=== PATIENT | female | born 1970 | race Caucasian/White ===

== ENCOUNTER 2017-05-04 19:39 | Inpatient (IN) | payer MEDICARE ==
[~2017-05-04] VITALS: Ht 172.7 cm; Wt 130.0 kg
--- NOTE | ~2017-05-04 | HEMODYNAMI ---
PATIENT:RADHA MARIE MEDICAL RECORD: [id number] : 72 LOCATION:[address] ADMISSION DATE: 05/04/17 Generatedon:05/12/201715:21 Patient name: RADHA MARIE Patient #: [id number] SSN: D OB: 1970 Date of study: 05/12/2017 Page: Of Hemodynamic Procedure Report Patient Data Patient Demographics Procedure consent was obtained First Name: RADHA Gender: Female Last Name: FRANK : 1970 Patient #: [id number] Age: 46 year(s) Race: Unknown Additional ID: [id number] Contact details [address]: [address] [place] [address] State: [place] City: [facility] Zip code: [address] Admission Admission Data Admission Date: 05/04/2017 Admission Time: 21:14 Room #: 2123 Lab Results Lab Result Date: 05/12/2017 Lab Result Time: 0:00 Biochemistry Name Units Result Min Max BUN mg/dl 45 --(----)-* 7 18 Creatinine mg/dl 1.6 --(----)-* 0.6 1.3 CBC Name Units Result Min Max Hemoglobin g/dl 8.6 *-(----)-- 13.5 17.5 Procedure Procedure Types Cath Procedure Diagnostic Procedure Right Heart Right Heart Cath Right Heart Pharmacology Study Procedure Description Procedure Date Procedure Date: 05/12/2017 Procedure Start Time: 14:50 Procedure End Time: 15:20 Procedure Staff Name Function Wilbur Chaudhry MD Performing Physician Angel Barbosa RT Scrub Marisol Van RN Nurse Tanvir Del Rosario RT Monitor Procedure Data Cath Procedure Fluoroscopy Diagnostic fluoroscopy Total fluoroscopy Time: 2.9 time: 2.9 min min Diagnostic fluoroscopy Total fluoroscopy dose: dose: 79.5 mGy 79.5 mGy Contrast Material Contrast Material Type Amount (ml) Isovue 300 0 Entry Location Entry Primary Successful Side Size Upsize Upsize Entry Closure Gibson ccessful Closure Location (Fr) 1 (Fr) 2 (Fr) Remarks Device Remarks Femoral Right 7 Fr Manual vein Short Compression Estimated blood loss: 10 ml Diagnostic catheters Device Type Used For End Catheter Placement Nunez Spunkmobileciences 7Fr Procedure Dolph Thermodilution juventino Procedure Medications Medication Administration Route Dosage Oxygen NC 3 l/min Lidocaine 2% added to field 20 Heparin Flush Bag added to field 2 bags (1000units/500ml NS) 0.9% NaCl I.V. 100 ml/hr Versed I.V. 1 mg Fentanyl I.V. 50 mcg Versed I.V. 2 mg Fentanyl I.V. 100 mcg Fentanyl I.V. 50 mcg Versed I.V. 1 mg Hemodynamics Rest HGB: 8.6 (g/dl) Heart Rate: 85 (bpm) Pressure Samples Time Site Value (mmHg) Purpose Heart Use Rate(bpm) 14:56 PA 81/50(64) Snapshot 77 15:00 PA 87/32(51) Snapshot 80 15:02 PA 85/38(53) Snapshot 68 15:04 PA 83/34(48) Snapshot 79 15:04 PA 66/34(46) Snapshot 68 15:06 RA 47/43(38) Snapshot 96 15:07 RV 112/10,26 Snapshot 93 Snapshots Pre Cath Intra NCS Post Cath Vital Signs Time Heart Resp SPO2 NIBP (mmHg) Rhythm Pain Sedation Rate (ipm) (%) Status Level (bpm) 14:34:49 85 20 97 97/37(75) NSR 0 (11) 10(A) , No pain 14:39:13 80 27 93 108/42(54) NSR 0 (11) 10(A) , No pain 14:43:39 78 15 97 73/49(54) NSR 0 (11) 10(A) , No pain 14:49:13 73 18 98 90/38(55) NSR 0 (11) 10(A) , No pain 14:53:35 84 23 100 93/42(69) NSR 0 (11) 9(A) , No pain 14:57:53 72 12 97 107/49(63) NSR 0 (11) 9(A) , No pain 15:03:15 77 22 97 72/47(60) NSR 0 (11) 9(A) , No pain 15:08:06 93 30 92 131/109(126) NSR 0 (11) 9(A) , No pain 15:12:34 89 26 90 88/61(82) NSR 0 (11) 10(A) , No pain 15:17:33 89 24 90 Measuring NSR 0 (11) 10(A) , No pain 15:17:43 89 19 90 129/114(122) NSR 0 (11) 10(A) , No pain Medications Time Medication Route Dose Verified Delivered Reason Notes Effe ctiveness by by 14:37:02 Oxygen NC 3 Marisol Marisol used for l/min Rehan Rehan fitting room supervisor RN 14:37:12 Lidocaine 2% added 20ml Marisol Marisol used for to vial Rehan Rehan procedure field RN RN 14:37:21 Heparin Flush added 2 Marisol Marisol used for Bag to bags Rehan Rehan procedure (1000units/500ml field RN RN NS) 14:37:32 0.9% NaCl I.V. 100 Marisol Marisol used for ml/hr Rehan Rehan fitting room supervisor RN 14:49:18 Versed I.V. 1 mg Marisol Marisol for Rehan Rehan sedation RN RN 14:49:25 Fentanyl I.V. 50 Marisol Marisol for mcg Rehan Rehan sedation RN RN 14:53:38 Versed I.V. 2 mg Marisol Marisol for Rehan Rehan sedation RN RN 14:54:54 Fentanyl I.V. 100 Marisol Marisol for mcg Rehan Rehan sedation RN RN 15:00:09 Fentanyl I.V. 50 Marisol Marisol for mcg Rehan Rehan sedation RN RN 15:00:23 Versed I.V. 1 mg Marisol Marisol for Rehan Rehan sedation RN residential mortgage underwriter Log Time Note 14:24:15 Tanvir Del Rosario RT(R) (CV) sent for patient. Start room use. 14:32:36 Time tracking: Regular hours 14:32:44 Plan of Care:Hemodynamics will remain stable., Cardiac rhythm will remain stable., Comfort level will be maintained., Respiratory function will remain adequate., Patient/ family verbilizes understanding of procedure., Procedure tolerated without complication., Recovers from procedure without complications.. 14:32:50 Patient received from PCU to CCL 3 Alert and oriented. Tansferred to table in Supine position. 14:32:51 Warm blankets applied, and alex hugger turned on for patient comfort. 14:32:52 Correct patient and procedure confirmed by team. 14:32:54 Signed procedure consent form obtained from patient. 14:32:55 ECG and BP/O2 sat monitors applied to patient. 14:32:56 Full Disclosure recording started 14:32:58 - 14:33:07 H&P Date Dictated: 05/12/2017 Within 30 days and on chart.. 14:33:08 Pre-procedure instructions explained to patient. 14:33:08 Pre-op teaching completed and patient verbalized understanding. 14:33:14 Family unavailable. 14:33:18 Patient NPO since Midnight. 14:33:24 Vital chart was started 14:33:27 Baseline sample Acquired. 14:33:31 Rhythm: sinus rhythm 14:37:02 Oxygen 3 l/min NC was administered by Marisol Van RN; used for procedure; 14:37:12 Lidocaine 2% 20ml vial added to field was administered by Marisol Van RN; used for procedure; 14:37:21 Heparin Flush Bag (1000units/500ml NS) 2 bags added to field was administered by Marisol Van RN; used for procedure; 14:37:32 0.9% NaCl 100 ml/hr I.V. was administered by Marisol Van RN; used for procedure; 14:39:00 Is the patient allergic to Iodine/contrast media? No. 14:39:01 Is patient on blood thinner?No 14:39:03 Patient diabetic? No. 14:39:04 - 14:39:05 ----Pre-sedation anethsthesia assessment.---- 14:39:07 Previous problem with sedation/anesthesia? No ? 14:39:09 Snore? Yes 14:39:10 Sleep apnea? Yes 14:39:11 Deviated septum? No 14:39:13 Opens mouth fully? No 14:39:17 Sticks out tongue? Yes 14:39:22 Airway obstruction? Yes no 14:39:25 Dentures? No ? 14:39:29 Sharps counted by scrub and verified by R.N. 14:39:30 Alarms reviewed by R. N. 14:39:36 Right groin area was prepped with chlora-prep and draped in sterile fashion 14:39:42 Patient pain scale 0/10 no pain. 14:39:48 IV patent on arrival in right forearm with 0.9% NaCl at [facility]. 14:41:57 Lab Result : BUN 45 mg/dl 14:41:57 Lab Result : Hemoglobin 8.6 g/dl 14:41:57 Lab Result : Creatinine 1.6 mg/dl 14:48:32 Physician arrived 14:48:33 --------ALL STOP TIME OUT------ 14:48:33 Final Timeout: patient, procedure, and site verified with staff and physician. All members of the team are in agreement. 14:48:36 Right groin site verified by team. 14:48:41 Physical assessment completed. ASA score P 2 - A patient with mild systemic disease as per Wilbur Chaudhry MD. 14:48:48 Sedation plan: IV Moderate Sedation Versed, Fentanyl 14:49:18 Versed 1 mg I.V. was administered by Marisol Van RN; for sedation; 14:49:25 Fentanyl 50 mcg I.V. was administered by Marisol Van RN; for sedation; 14:49:43 Terumo 7Fr [place] Sheath opened to sterile field. 14:49:53 Procedure started. 14:49:59 Use device set Radial Dx 14:50:03 Acist Syringe opened to sterile field. 14:50:04 Medline Cath Pack opened to sterile field. 14:50:05 Bag Decanter opened to sterile field. 14:50:08 Acist Hand Control opened to sterile field. 14:50:08 Acist Manifold opened to sterile field. 14:50:11 Tegaderm 4 x 4 opened to sterile field. 14:50:22 Local anesthetic to right femoral vein with Lidocaine 2% by Wilbur Chaudhry MD.INITIAL ACCESS ONLY 14:50:36 Zero performed for pressure channel P1 14:51:23 Zero performed for pressure channel P1 14:51:52 A 7 Fr Short sheath was inserted into the Right Femoral vein 14:52:02 A Figure 1 7Fr Dolph Thermodilution juventino was advanced over the wire and used for Procedure. 14:53:38 St Robert 150cm J .025 wire opened to sterile field. 14:53:38 Versed 2 mg I.V. was administered by Marisol Van RN; for sedation; 14:54:54 Fentanyl 100 mcg I.V. was administered by Marisol Van RN; for sedation; 14:58:41 ADENOSINE STARTED 14:58:54 UNABLE TO WEDGE THE SWAN 15:00:09 Fentanyl 50 mcg I.V. was administered by Marisol Van RN; for sedation; 15:00:23 Versed 1 mg I.V. was administered by Marisol Van RN; for sedation; 15:03:09 STARTING 200MCG 15:08:23 Catheter removed. 15:09:23 Sheath removed intact; hemostasis achieved with Manual Compression to the Right Femoral vein. 15:09:27 Procedure ended.(Physican Out) 15:13:50 Fluoroscopy time 02.90 minutes. 15:14:03 Fluoroscopy dose: 79.5 mGy 15:14:03 Flurop Dose total: 79.5 15:14:07 Contrast amount:Isovue 300 0ml. 15:14:11 Sharps counted by scrub and verified by R.N. 15:14:18 Insertion/operative site no bleeding no hematoma. 15:14:24 Post-op/insertion site Right Femoral vein dressed using a 4 x 4 and Tegaderm. 15:14:28 Post right femoral vein:stable 15:14:39 Post-procedure physical assessment completed. ASA score P 2 - A patient with mild systemic disease as per Wilbur Chaudhry MD. 15:14:45 Post procedure rhythm: sinus rhythm 15:15:02 Estimated blood loss: 10 ml 15:15:04 Post procedure instruction explained to patient.Patient verbalizes understanding. 15:15:05 Patient needs reinforcement of post procedure teaching. 15:15:07 Procedure and supply charges have been captured, reviewed, submitted an d are correct. 15:15:37 Procedure type changed to Cath procedure, Diagnostic procedure, Right Heart, Right Heart Cath, Right Heart Pharmacology Study 15:20:01 Vital chart was stopped 15:20:02 See physician's report for complete and final results. 15:20:04 Report given to Med II. 15:20:12 Patient transfered to PCU with Bed. 15:20:15 Procedure ended. 15:20:15 Full Disclosure recording stopped 15:20:35 End room use (Document Last) Device Usage Item Name Manufacture Quantity Catalog Hospital Part Current Minima l Lot# / Number Charge Number Stock Stock Serial# Code Terumo 7Fr Terumo 1 [id number] [id number] 5 [place] Sheath Acist Syringe Acist 1 08212 457015 668793 147894 20 Medical Systems Inc Medline Cath Cardinal 1 [id number] 39200 [id number] 5 Pack Health Bag Decanter Microtek 1 2002S 139037 59185 298422 5 Medical Inc. Acist Hand Acist 1 88664 378119 288379 601875 5 Control Medical Systems Inc Acist Manifold Acist 1 81091 634563 951033 916232 5 Medical Systems Inc Tegaderm 4 x 4 3M 1 1626W 547196 680181 637623 5 Nunez Nunez 1 [id number] 452526 26990 118115 3 Lifesciences Lifesciences 7Fr Dolph Thermodilution juventino St Robert 150[address] St Robert 1 227520 071764 845674 793614 2 J .025 wire Signature Audit [place] Stage Time Signature Unsigned Intra-Procedure 05/12/2017 Tanvir Del Rosario 3:21:22 PM RT(R) (CV) Signatures Monitor : Tanvir Del Rosario RT Signature : Date : Time : [place] [id number] [place] [address]
[~2017-05-04 19:39] MED LIST: ADVAIR 250/501 DISK INH; ALDACTONE50 MG PO; BUMEX 1 MG TAB1 MG PO; BUMEX2 MG PO; COMBIVENT RESPIM4 GM INH; DUONEB 2.5-0.5 M3 ML UPD; LAC-HYDRIN 5226 ML TP; LASIX40 MG PO; LISINOPRIL10 MG PO; LYRICA50 MG PO; NICODERM C1 PATCH .3 TD; PREDNISONE20 MG PO; SALAGEN5 MG PO; SINGULAIR10 MG PO; SOMA350 MG PO; SUBOXONE 8 M1 TAB.SL SL; TAZTIA XT360 MG PO; VIAGRA25 MG PO
[2017-05-04 20:41] LABS: BASOPHILS 0.5 % (0-2); EOSINOPHILS 3.4 % (0-7); HEMATOCRIT 30.3 % (36.0-48.0); IMMATURE GRANULOCYTES 0.5 % (0-5); LYMPHOCYTES 14.5 % (15-50); MCH 28.4 pg (26.0-34.0); MCHC 29.7 g/dL (31.0-37.0); MCV 95.6 fL (80.0-100.0); MEAN PLATELET VOLUME 9.5 fL (7.4-10.4); MONOCYTES 7.1 % (2-11); PLATELET COUNT 232 10x3/uL (130-400); RBC 3.17 10x6/uL (4.00-5.40); RDW 17.2 % (11.5-14.5); WBC 8.3 10x3/uL (4.8-10.8)
[2017-05-04 21:05] LABS: ALBUMIN 3.4 g/dL (3.4-5.0); BILIRUBIN - TOTAL 0.29 mg/dL (0.2-1.3); CALCIUM 8.4 mg/dL (8.5-10.1); CARBON DIOXIDE 17.8 mmol/L (21.0-32.0); CREATININE - SERUM 4.1 mg/dL (0.6-1.3)
[2017-05-04 21:17] LABS: PROTEIN - SERUM 7.3 g/dL (6.4-8.2)
[2017-05-04 21:21] LABS: ANION GAP 24.3 mmol/L (8-16)
[2017-05-04 21:23] LABS: POTASSIUM - SERUM 7.1 mmol/L (3.5-5.1); TROPONIN-I 0.26 ng/mL (0.000-0.060)
--- NOTE | 2017-05-04 22:00 | NUR ---
PT ADMITTED TO ROOM 2122 FROM ER. ABLE TO SLOWLY TRANSFER HERSELF FROM STRETCHER TO BED. O2 @ 2L/NC IN PLACE. RESPS SLOW/NONLABORED. PIV TO RFA WITH DOBUTAMINE AT 5MCG/KG INFUSING. PIV TO LEFT WRIST SALINE LOCKED. PT WANTING LEFT HAND IV REMOVED. EXPLAINED TO HER THAT ANY ORDERED TESTING WOULD REQUIRES A 20G IV SO IF SHE HAD STAFF REMOVED IT, THEN IT WOULD ONLY HAVE TO BE RESTARTED. PT AGREED TO LEAVE IV IN PLACE. ADMISSION ASESSMENT AND HISTORY COMLETED. HOME MEDS REVIWED. PLAN OF CARE IN PLACE. CALL LIGHT IN REACH.
[2017-05-04 22:57] VITALS: BP 104/50; BMI 40.8
[2017-05-05] VITALS: BP 113/48
[2017-05-05 04:00] VITALS: BP 109/39
[2017-05-05 05:06] LABS: APPEARANCE CLEAR (CLEAR); BILIRUBIN NEGATIVE (NEGATIVE); COLOR STRAW (YELLOW); GLUCOSE NEGATIVE (NEGATIVE); KETONE NEGATIVE (NEGATIVE); LEUKOCYTE ESTERASE NEGATIVE (NEGATIVE); NITRITE NEGATIVE (NEGATIVE); PROTEIN NEGATIVE (NEGATIVE); SPECIFIC GRAVITY 1.015 (1.005-1.020); UROBILINOGEN NORMAL (NORMAL)
[2017-05-05 06:53] LABS: CALCIUM 8.3 mg/dL (8.5-10.1); CARBON DIOXIDE 20.6 mmol/L (21.0-32.0); CREATININE - SERUM 3.7 mg/dL (0.6-1.3)
[2017-05-05 06:54] LABS: ANION GAP 20.4 mmol/L (8-16)
--- NOTE | 2017-05-05 07:17 | NUR ---
AM ROUNDS- PT IN BED, WITH EYES CLOSED, HOUSEKEEPING AT BEDSIDE. BED LOW AND WHEELS LOCKED, BEDSIDE RAILS X2, RT FA INFUSING DOBUTREX AT 18CC/HR. CALL LIGHT IN REACH, NAD NOTED, WILL CONTINUE TO MONITOR.
[2017-05-05 08:00] VITALS: BP 97/37
--- NOTE | 2017-05-05 08:01 | NUR ---
CALLED PHARMACY AND SPOKE WITH MICHAEL, INFORMED HER THAT PT'S MEDS ARE NOT SHOWING UP IN PIXIS.
--- NOTE | 2017-05-05 08:41 | NUR ---
AM MEDS GIVEN. PT C/O URGE TO URINATE, PT MARTINEZ ASSESSED FOR ANY KINKS, MARTINEZ DRAINING. PT DENIES ANY OTHER NEEDS AT THIS TIME. CALL LIGHT IN REACH, NA DNOTED, WILL CONTINUE TO MONITOR.
--- NOTE | 2017-05-05 09:20 | NUR ---
DOBUTREX STOPPLED AT THIS TIME, PER DOCTORS ORDERS. PT STATES THAT JANAK ANNE APN SAID MARTINEZ COULD BE D/C. NO ORDERS SEEN AT THIS TIME. PT IN BED, DENIES ANY OTHER NEEDS AT THIS TIME. CALL LIGHT IN REACH, NAD NOTED, WILL CONTINUE TO MONITOR.
[2017-05-05 12:00] VITALS: BP 94/42
--- NOTE | 2017-05-05 13:26 | NUR ---
MARTINEZ D/C PER DOCTORS ORDER, 10CC OF SALINE REMOVED FROM BALLOON, PT TOLERATED WELL. DENIES ANY OTHER NEEDS AT THIS TIME. CALL LIGHT IN REACH, NAD NOTED, WILL CONTINUE TO MONITOR.
[2017-05-05 14:19] VITALS: Ht 172.7 cm; Wt 130.0 kg
[2017-05-05 16:00] VITALS: BP 91/59
[2017-05-05 19:00] VITALS: BP 107/47
--- NOTE | 2017-05-05 19:31 | NUR ---
ASSESSMENT COMPLETE, A&O. SITTING UP IN BED WATCHING TV. SL NOTED TO LEFT WRIST AND RIGHT FOREARM, BOTH SITES C/D/I. TWO PAIR OF SCRUB PANTS TAKEN TO ROOM AT PT REQUEST. PT DENIES PAIN OR NEEDS, BED LOW, CL IN REACH.
--- NOTE | 2017-05-05 20:15 | NUR ---
ANSWERED CL. PT ROOM SMELLS STRONGLY OF CIGARETTE SMOKE, PT DENIES SMOKING IN ROOM, HOWEVER NUSING STAFF HASNT SEEN PT LEAVE ROOM.
--- NOTE | 2017-05-05 21:35 | NUR ---
SPOKE WITH LENA DYKES ABOUT CONTINUING PT HOME DOSE OF SUBOXONE OF 8/2 MG BID, ORDERS GIVEN THAT WE MAY CONTINUE 1/2 OF THE DOSE THAT THE PT TAKES AT HOME DUE TO HER BUN AND CREATINE BEING ELEVATED.
--- NOTE | 2017-05-05 22:01 | NUR ---
HS MEDS GIVEN WITH FRESH ICE WATER, SUBOXONE 1/2 TAB GIVEN. PT RATES PAIN AT AN 8 ON PAIN SCALE. NO OTHER NEEDS AT THIS TIME, BED LOW, CL IN REACH.
--- NOTE | 2017-05-05 23:45 | NUR ---
SHOT DROPPER AT BEDSIDE TO OBTAIN VITALS, CALL LIGHT IN REACH. WILL CONTINUE WITH PLAN OF CARE.
[2017-05-06] VITALS (7 sets, daily range): BP systolic 87–117; BP diastolic 38–55
--- NOTE | 2017-05-06 02:54 | NUR ---
RESTING WITH EYES CLOSED, RESPERATIONS EVEN, NO S/S DISTRESS NOTED.
[2017-05-06 05:01] LABS: BASOPHILS 0.1 % (0-2); EOSINOPHILS 7.2 % (0-7); HEMATOCRIT 27.3 % (36.0-48.0); HEMOGLOBIN 8.6 g/dL (12-16); IMMATURE GRANULOCYTES 0.4 % (0-5); LYMPHOCYTES 13.4 % (15-50); MCH 28.7 pg (26.0-34.0); MCHC 31.5 g/dL (31.0-37.0); MONOCYTES 8.6 % (2-11); NEUTROPHILS 70.3 % (40-80); PLATELET COUNT 215 10x3/uL (130-400); RDW 16.4 % (11.5-14.5); WBC 7.9 10x3/uL (4.8-10.8)
[2017-05-06 05:23] LABS: ALBUMIN 3.1 g/dL (3.4-5.0); ANION GAP 14.8 mmol/L (8-16); BILIRUBIN - TOTAL 0.41 mg/dL (0.2-1.3); CALCIUM 8.8 mg/dL (8.5-10.1); CARBON DIOXIDE 25.6 mmol/L (21.0-32.0); MAGNESIUM - SERUM 2.8 mg/dL (1.8-2.4); POTASSIUM - SERUM 5.4 mmol/L (3.5-5.1); PROTEIN - SERUM 7.1 g/dL (6.4-8.2)
[2017-05-06 05:25] LABS: CREATININE - SERUM 2.4 mg/dL (0.6-1.3)
--- NOTE | 2017-05-06 07:35 | NUR ---
AM ROUNDS- PT IN BED, WITH EYES CLOSED, BED LOW AND WHEELS LOCKED. BED RAILSX2, CALL LIGHT IN REACH, LT WRIST AND RT FA IV SL. NAD NOTED, WILL CONTINUE TO MONITOR.
--- NOTE | 2017-05-06 08:20 | NUR ---
WHEN I ENTER PT'S ROOM, I COULD SMEELL CIGARETTE SMOKE. ASKED PT IF SHE HAS BEEN SMOKING IN ROOM. PT STATED "I BROKE DOWN AND HAD TO HAVE A FEW SMOKES OF ONE CIGARRETE, I HAVE BEEN ASKING THE DOCTOR'S FOR A NICOTINE PATCH SINCE YESTEDAY". INFORMED PT ABOUT RISK OF SMOKING IN ROOM BECAUSE OF O2. PT STATED " I WILL NOT DO IT AGAIN, BUT I JUST NEED NICOTINE PATCH". WILL GET ORDER FOR NICOTINE PATCH. 0840- AM MEDS GIVEN , PT DENIES ANY NEEDS AT THIS TIME. CALL LIGHT IN REACH, NAD NOTED, WILL CONTINUE TO MONITOR.
[2017-05-06 12:19] LABS: ANA REFLEX - DIRECT Negative (Negative)
--- NOTE | 2017-05-06 17:34 | NUR ---
Patient Name: RADHA MARIE Admission Status: ER Accout number: [id number] Admission Date: 05-04-2017 : 1970 Admission Diagnosis:HEART FAILURE, UNSPECIFIED Attending: ASHOK Current LOS: 2 Anticipated DC Date: Planned Disposition: Home Primary Insurance: MEDICARE A & B Discharge Planning Comments: * Is the patient Alert and Oriented? Yes 0 * How many steps to enter\exit or inside your home? NONE 0 * PCP DR. ANDREA ANDERS 0 * Pharmacy [facility] 0 * Preadmission Environment Home with Family 0 * ADLs Independent 0 * Equipment Cane Nebulizer Oxygen 0 * Other Equipment HOME AND PORTABLE OXYGEN [facility] - MEDICAL EQUIPMENT PROVIDER 0 * List name and contact numbers for known caregivers / representatives who currently or will assist patient after discharge: MOSES LUGO DTR, 0 * Community resources currently utilized None 0 * Please name any agencies selected above. NONE 0 * Additional services required to return to the preadmission environment? No 0 * Can the patient safely return to the preadmission environment? Yes 0 * Has this patient been hospitalized within the prior 30 days at any hospital? No 0 CM MET WITH PT AND DAUGHTER IN ROOM TO DISCUSS DISCHARGE PLANNING AND NEEDS. PT REPORTS LIVING AT HOME INDEPENDENTLY; ALSO IN PT'S HOME IS HER MOTHER AND ADULT DAUGHTER. PT HAS HOME AND PORTABLE OXYGEN, NEBULIZER AND CANE FROM [facility]. PT HAS NO OUTSIDE SERVICES ASSISTING IN THE HOME. CM DISCUSSED AVAILABILITY OF HOME HEALTH, REHAB SERVICES AND MEDICAL EQUIPMENT. PT DENIES DISCHARGE NEEDS; DAUGHTER ASKED ABOUT HOME HEALTH TO ASSIST WITH MEDICATION MONITORING AND THERAPY AT HOME; CM EXPLAINED THAT PT WILL NEED TO BE WILLING FOR SERVICES AND THE DOCTOR WOULD HAVE TO PROVIDE ORDERS. PT'S DAUGHTER REPORTS SHE WILL SPEAK TO THE DOCTOR ABOUT THIS. PT REPORTS HER DAUGHTER WILL PICK HER UP FOR DISCHARGE HOME. PT REPORTS HER ONLY NEED IS FOR [facility] TO CHECK HER OXYGEN TUBING AT HOME FOR CRACKS IT IS OLD. PT PLANS TO DISCHARGE HOME WITH FAMILY. FAMILY FEELS PT WILL BENEFIT FROM HOME HEALTH FOR MEDICATION COMPLIANCE AND THERAPY. CM WILL MONITOR AND IF PT AGREES AND DOCTORS ORDER IS RECEIVED, CM TO ARRANGE WITH PROVIDER OF PT'S CHOICE. CM TO CALL [facility] TO CHECK PT'S HOME OXYGEN TUBING. CM TO FOLLOW AND ASSIST IF NEEDED. Senior Product Engineer: Lacho Ayala
--- NOTE | 2017-05-06 19:41 | NUR ---
ASSESSMENT COMPLETE, A&O. RESPERATIONS EVEN ON 02 AT 2 LITER VIA NC. IV TO LEFT WRIST AND RIGHT FOREARM SL, SITES CLEAN AND DRY. PT DENIES PAIN OR NEEDS, BED LOW, CL IN REACH, WILL CONT TO MONITOR.
--- NOTE | 2017-05-06 21:23 | NUR ---
HS MEDS GIVEN WITH FRESH ICE WATER, SUBOXONE 1/2 TAB GIVEN. NO OTHER NEEDS EXPRESSED AT THIS TIME.
[2017-05-07] VITALS: BP 109/83
--- NOTE | 2017-05-07 02:08 | NUR ---
RESTING WITH EYES CLOSED, RESPERATIONS EVEN, NO S/S DISTRESS NOTED.
[2017-05-07 04:00] VITALS: BP 101/86
[2017-05-07 05:08] LABS: BASOPHILS 0.1 % (0-2); HEMATOCRIT 27.9 % (36.0-48.0); HEMOGLOBIN 8.7 g/dL (12-16); IMMATURE GRANULOCYTES 0.1 % (0-5); LYMPHOCYTES 17.3 % (15-50); MCH 28.7 pg (26.0-34.0); MCHC 31.2 g/dL (31.0-37.0); MCV 92.1 fL (80.0-100.0); MEAN PLATELET VOLUME 9.4 fL (7.4-10.4); MONOCYTES 9.4 % (2-11); NEUTROPHILS 66.1 % (40-80); PLATELET COUNT 213 10x3/uL (130-400); RBC 3.03 10x6/uL (4.00-5.40); RDW 16.7 % (11.5-14.5); WBC 7.5 10x3/uL (4.8-10.8)
[2017-05-07 05:34] LABS: ALBUMIN 3.2 g/dL (3.4-5.0); ANION GAP 15.1 mmol/L (8-16); BILIRUBIN - TOTAL 0.36 mg/dL (0.2-1.3); CALCIUM 8.8 mg/dL (8.5-10.1); CARBON DIOXIDE 27.2 mmol/L (21.0-32.0); CREATININE - SERUM 2.3 mg/dL (0.6-1.3); MAGNESIUM - SERUM 2.7 mg/dL (1.8-2.4); POTASSIUM - SERUM 5.3 mmol/L (3.5-5.1); PROTEIN - SERUM 7.3 g/dL (6.4-8.2)
--- NOTE | 2017-05-07 07:39 | NUR ---
ASSESSMENT DONE. DENIES NEEDS.
--- NOTE | 2017-05-07 07:59 | NUR ---
RESTS WITH EYES CLOSED. RESP UL ON . CALL LIGHT IN REACH. WILL CONT. PLAN OF CARE.
[2017-05-07 08:36] VITALS: BP 97/50
--- NOTE | 2017-05-07 09:38 | NUR ---
Patient Name: RADHA MARIE Encounter No: [id number] : 1970 Primary Insurance: MEDICARE A & B Anticipated DC Date: Planned Disposition: Home DCP follow-up note: CM CALLED MICHAEL, , SPOKE TO JEFERSON AND NOTIFIED OF PT'S REPORT OF NEEDING THE OXYGEN TUBING ON HER HOME UNIT REPLACED. JEFERSON OPENED MAINTENACE TICKET AND WILL CALL PT/FAMILY TO ARRANGE EVALUATION AND REPAIR. PT PLANS TO DISCHARGE HOME WITH FAMILY. FAMILY FEELS PT WILL BENEFIT FROM HOME HEALTH FOR MEDICATION COMPLIANCE AND THERAPY. CM WILL MONITOR AND IF PT AGREES AND DOCTORS ORDER IS RECEIVED, CM TO ARRANGE WITH PROVIDER OF PT'S CHOICE. CM TO FOLLOW AND ASSIST IF NEEDED. Title I Director: Lacho Ayala
--- NOTE | 2017-05-07 11:01 | EC ---
PATIENT:RADHA MARIE DATE OF SERVICE: 05/05/17 SEX: F MEDICAL RECORD: [id number] DATE OF : [birth year] LOCATION:D.M2 D.212 AGE OF PATIENT: 46 ADMISSION DATE: 05/04/17 REFERRING PHYSICIAN: INTERPRETING PHYSICIAN: DANN REGAN MD ECHOCARDIOGRAM REPORT ECHO CHARGES 4 ECHO COMPLETE CLINICAL DIAGNOSIS: PULMONARY HTN ECHOCARDIOGRAPHIC MEASUREMENTS (adult normal given) AC root (d.<3.7cm) 2.7 LV Septum d (<1.2 cm> 1.1 Valve Excursion 2.3 LV Septum (systole) 1.6 Left Atria (s.<4.0cm> 4.8 LVPW d(<1.2cm) 1.1 RV (d.<2.3cm) 3.3 LVPW (sytole) 1.8 LV diastole(<5.6CM) 5.8 MV E-F(>70mm/sec) LV systole 3.9 LVOT Diameter 2.0 MV exc.(>10mm) Est.ejection fraction (50-75%) Pericardial Effusion N DOPPLER: LVIT A 96.0 E 83.0 LA RVSP 143.0 LVOT 107 AOP1/2T Asc. Ao 144 RVOT 98.0 RA PA 131 AV Gradient Peak 8.3 AV Mean 3.5 AV Area 2.4 MV Gradient Peak 5.9 MV Mean 2.7 MV Area COMMENTS: Tilt Wall Supervisor: Kwesi VALENTEDSOE Community Services Officer:Mary Chaudhry TAPE# PACS TWO-DIMENSIONAL ECHOCARDIOGRAM WITH DOPPLER 1. Left ventricular chamber size is within normal limits. Left ventricular systolic function is normal. Overall ejection fraction is estimated at 55 percent. 2. Left atrium is enlarged at 4.8 centimeters. Right atrium and right ventricular chamber sizes are severely dilated. 3. Valvular structures have normal structure and motion. 4. Doppler interrogation reveals severe tricuspid regurgitation; no other valvular insufficiency or stenosis. Pulmonary artery systolic pressure is markedly elevated estimated at 143 millimeters of mercury. ECHOCARDIOGRAM REPORT [id number] RADHA MARIE 5. No evidence of pericardial effusion or left ventricular thrombus. DANN REGAN MD at 1101 CC: [id number] DICTATION DATE: 05/05/17 1500 ART CONSERVATOR: DM 05/06/17 0837 ADM IN [facility] [address] [place] [address]
--- NOTE | 2017-05-07 12:50 | NUR ---
Nutrition Follow Up: Pt was out of the room at the time of RD visit. Per chart pt c/o decreased appetite and denies any N/V. Pt is eating 75% meal avg on an AHA diet. Wt gain since admit noted. +BM 05/06/17. Labs reviewed. Meds noted including Lasix. Rec continue current diet. RD following.
[2017-05-07 12:55] VITALS: BP 104/46
[2017-05-07 17:41] VITALS: BP 97/38
--- NOTE | 2017-05-07 18:38 | NUR ---
WITHOUT CHANGES OR DISTRESS NOTED AT THIS TIME.
--- NOTE | 2017-05-07 19:29 | NUR ---
INITIAL ROUNDS COMPLETED AT 1920 HRS. PT RESTING WITH EYES CLOSED. RESP EVEN AND REGULAR. SR UP X2, CALL LIGHT WITHIN REACH.
[2017-05-07 20:00] VITALS: BP 94/60
--- NOTE | 2017-05-07 21:52 | NUR ---
PM MEDS GIVEN. IV TO LFA INFILTRATED. DC'D WITH CATHETER INTACT. WILL CONTINUE TO MONITOR.
[2017-05-08] VITALS: BP 96/34
--- NOTE | 2017-05-08 00:27 | NUR ---
PT RESTING WITH EYES CLOSED. RESP EVEN AND REGULAR. SR UP X2, CALL LIGHT WITHIN REACH.
--- NOTE | 2017-05-08 02:16 | NUR ---
PT RESTING WITH EYES CLOSED. RESP EVEN AND REGULAR. SR UP X2, CALL LIGHT WITHIN REACH.
[2017-05-08 04:00] VITALS: BP 108/44
--- NOTE | 2017-05-08 04:47 | NUR ---
PT AWAKE; DENIES ANY DISCOMFORT. PT STATED SHE MISSED URINE COMMUNITY DEVELOPMENT MANAGER IN TOILET. WILL CONTINUE TO MONITOR.
[2017-05-08 06:08] LABS: BASOPHILS 0.3 % (0-2); EOSINOPHILS 7.4 % (0-7); HEMOGLOBIN 8.7 g/dL (12-16); IMMATURE GRANULOCYTES 0.4 % (0-5); MCH 27.8 pg (26.0-34.0); MCV 92.7 fL (80.0-100.0); MEAN PLATELET VOLUME 9.4 fL (7.4-10.4); MONOCYTES 6.6 % (2-11); NEUTROPHILS 67.3 % (40-80); PLATELET COUNT 194 10x3/uL (130-400); RBC 3.13 10x6/uL (4.00-5.40); RDW 17.1 % (11.5-14.5); WBC 6.8 10x3/uL (4.8-10.8)
[2017-05-08 06:23] LABS: % SATURATION 5 % (15-55); IRON 22 ug/dl (35-150); TOTAL IRON BIND CAPACITY 397 ug/dl (260-445); UNSAT IRON BIND CAPACITY 375 ug/dl (150-375)
--- NOTE | 2017-05-08 06:37 | NUR ---
VSS THROUGHOUT NIGHT. PT SLEPT WELL DURING SHIFT. NEEDS MET; WILL CONTINUE TO MONITOR.
[2017-05-08 06:38] LABS: ALBUMIN 3.2 g/dL (3.4-5.0); ANION GAP 12.9 mmol/L (8-16); BILIRUBIN - TOTAL 0.2 mg/dL (0.2-1.3); CALCIUM 9.1 mg/dL (8.5-10.1); CARBON DIOXIDE 26.5 mmol/L (21.0-32.0); CREATININE - SERUM 1.8 mg/dL (0.6-1.3); POTASSIUM - SERUM 5.4 mmol/L (3.5-5.1); PROTEIN - SERUM 7.2 g/dL (6.4-8.2)
[2017-05-08 08:00] VITALS: BP 87/44
[2017-05-08 12:00] VITALS: BP 101/43
[2017-05-08 16:00] VITALS: BP 88/38
[2017-05-08 20:00] VITALS: BP 89/33
--- NOTE | 2017-05-08 21:30 | NUR ---
BP 89/33 - LASIX 60 MG IV HELD. WILL CONT TO MONITOR.
--- NOTE | 2017-05-09 00:57 | NUR ---
AWAKE IN BED WATCHING TV, DENIES NEEDS, BED LOW, CL IN REACH.
[2017-05-09 04:00] VITALS: BP 95/45
--- NOTE | 2017-05-09 07:27 | NUR ---
ASSESSMENT COMPLETED. TELEMERTY SHOWS SR WITH A RATE OF 74. O2 AT 4 L/M PER NC. RIGHT FA SL. UP AB CEM. DENIES ANY NEEDS AT PRESENT TIME. SR UP WITH CALL LIGHT IN REACH . WILL MONITOR
[2017-05-09 08:11] LABS: BASOPHILS 0.3 % (0-2); EOSINOPHILS 8.2 % (0-7); HEMOGLOBIN 8.6 g/dL (12-16); IMMATURE GRANULOCYTES 0.1 % (0-5); MCH 28.8 pg (26.0-34.0); MCHC 30.7 g/dL (31.0-37.0); MCV 93.6 fL (80.0-100.0); MEAN PLATELET VOLUME 8.9 fL (7.4-10.4); MONOCYTES 5.5 % (2-11); NEUTROPHILS 72.9 % (40-80); PLATELET COUNT 170 10x3/uL (130-400); RBC 2.99 10x6/uL (4.00-5.40); WBC 7.1 10x3/uL (4.8-10.8)
[2017-05-09 08:25] LABS: ALBUMIN 3.3 g/dL (3.4-5.0); ANION GAP 11.1 mmol/L (8-16); BILIRUBIN - TOTAL 0.22 mg/dL (0.2-1.3); CARBON DIOXIDE 28.4 mmol/L (21.0-32.0); CREATININE - SERUM 1.9 mg/dL (0.6-1.3); MAGNESIUM - SERUM 2.8 mg/dL (1.8-2.4); POTASSIUM - SERUM 5.5 mmol/L (3.5-5.1); PROTEIN - SERUM 7.4 g/dL (6.4-8.2)
[2017-05-09 08:38] VITALS: BP 96/47
--- NOTE | 2017-05-09 12:32 | NUR ---
LYING QUIETLY, FAMILY AT BEDSIDE . DENIES ANY NEEDS. WILL MONITOR
[2017-05-09 12:36] VITALS: BP 95/33
--- NOTE | 2017-05-09 15:53 | NUR ---
LYING QUIETLY. DENIES ANY NEEDS. SR UP WITH CALL LIGHT IN REACH. WILL MONITOR
[2017-05-09 16:23] VITALS: BP 95/42
[2017-05-09 20:00] VITALS: BP 88/43
--- NOTE | 2017-05-10 01:13 | NUR ---
MEDICATED WITH SUBUXONE 1/2 TAB AFTER DISCUSSION WITH PATIENT ABOUT HER BP. PT HAS BEEN ON THIS MED FOR 8 YEARS. HELD THE SCHEDULED LASIX SO BP WILL NO GO ANY LOWER.
[2017-05-10 04:00] VITALS: BP 88/60
[2017-05-10 05:24] LABS: BASOPHILS 0.3 % (0-2); EOSINOPHILS 9.3 % (0-7); HEMATOCRIT 27.5 % (36.0-48.0); HEMOGLOBIN 8.4 g/dL (12-16); IMMATURE GRANULOCYTES 0.1 % (0-5); LYMPHOCYTES 15.8 % (15-50); MCH 28.7 pg (26.0-34.0); MCHC 30.5 g/dL (31.0-37.0); MCV 93.9 fL (80.0-100.0); MEAN PLATELET VOLUME 9.3 fL (7.4-10.4); MONOCYTES 7.4 % (2-11); NEUTROPHILS 67.1 % (40-80); PLATELET COUNT 181 10x3/uL (130-400); RBC 2.93 10x6/uL (4.00-5.40); RDW 17.3 % (11.5-14.5); WBC 6.8 10x3/uL (4.8-10.8)
[2017-05-10 05:53] LABS: ALBUMIN 3.3 g/dL (3.4-5.0); ANION GAP 11.3 mmol/L (8-16); BILIRUBIN - TOTAL 0.3 mg/dL (0.2-1.3); CARBON DIOXIDE 28.4 mmol/L (21.0-32.0); CREATININE - SERUM 1.5 mg/dL (0.6-1.3); MAGNESIUM - SERUM 2.9 mg/dL (1.8-2.4); POTASSIUM - SERUM 5.7 mmol/L (3.5-5.1); PROTEIN - SERUM 7.2 g/dL (6.4-8.2)
--- NOTE | 2017-05-10 07:37 | NUR ---
ASSESSMENT DONE. DENIES NEEDS.
[2017-05-10 08:00] VITALS: BP 90/47
--- NOTE | 2017-05-10 09:30 | NUR ---
RESTS IN BED WITH EYES CLOSED. RESP UL ON . CALL LIGHT IN REACH. WILL MONITOR NEEDS.
[2017-05-10 12:13] VITALS: BP 100/58
[2017-05-10 12:17] VITALS: BP 103/42
--- NOTE | 2017-05-10 17:13 | NUR ---
WITHOUT CHANGES OR DISTRESS NOTED AT THIS TIME. DENIES NEEDS.
--- NOTE | 2017-05-10 19:15 | NUR ---
ASSESSMENT COMPLETE PER FLOWSHEET. PT REQUESTING SUBOXONE. INSTRUCT WILL GET AT 2100. VOICES NO CO AT TIME.
[2017-05-10 20:00] VITALS: BP 87/37
--- NOTE | 2017-05-10 22:30 | NUR ---
SITTING UP ON SIDE OF BED NO CO AT TIME.
--- NOTE | 2017-05-10 23:49 | NUR ---
SITTING UP IN BED, ON PHONE NO CO AT TIME.
[2017-05-11] VITALS: BP 92/43
--- NOTE | 2017-05-11 00:25 | NUR ---
UP TO BATHROOM. VOICES NO CO AT TIME.
--- NOTE | 2017-05-11 03:38 | NUR ---
SLEEPING NO DISTRESS NOTED. SR UP X 2.
[2017-05-11 04:00] VITALS: BP 98/70
--- NOTE | 2017-05-11 04:32 | NUR ---
SITTING UP ON SIDE OF BED DRINKING LEMON ASSINIBOINE AND [place] TRIBES SODA.
[2017-05-11 06:34] LABS: ANION GAP 11.9 mmol/L (8-16); CALCIUM 8.3 mg/dL (8.5-10.1); CARBON DIOXIDE 27.4 mmol/L (21.0-32.0); CREATININE - SERUM 1.6 mg/dL (0.6-1.3); POTASSIUM - SERUM 5.3 mmol/L (3.5-5.1)
[2017-05-11 06:50] LABS: BASOPHILS 0.1 % (0-2); EOSINOPHILS 9.9 % (0-7); HEMATOCRIT 26.3 % (36.0-48.0); HEMOGLOBIN 8.1 g/dL (12-16); IMMATURE GRANULOCYTES 0.1 % (0-5); LYMPHOCYTES 13.9 % (15-50); MCH 28.6 pg (26.0-34.0); MCHC 30.8 g/dL (31.0-37.0); MCV 92.9 fL (80.0-100.0); MONOCYTES 7.5 % (2-11); NEUTROPHILS 68.5 % (40-80); PLATELET COUNT 179 10x3/uL (130-400); RBC 2.83 10x6/uL (4.00-5.40); RDW 17.1 % (11.5-14.5); WBC 6.7 10x3/uL (4.8-10.8)
--- NOTE | 2017-05-11 07:39 | NUR ---
ASSESSMENT DONE. DENIES NEEDS.
--- NOTE | 2017-05-11 08:48 | NUR ---
RESTS WITH EYES CLOSED. RESP UL ON . CALL LIGHT IN REACH. WILL CONT. PLAN OF CARE.
[2017-05-11 13:08] VITALS: BP 99/47
[2017-05-11 13:09] VITALS: BP 106/81
[2017-05-11 16:30] VITALS: BP 84/45
--- NOTE | 2017-05-11 16:44 | NUR ---
WITHOUT CHANGES OR DISTRESS NOTED AT THIS TIME. DENIES NEEDS.
[2017-05-11 20:00] VITALS: BP 104/33
--- NOTE | 2017-05-11 20:56 | NUR ---
PT AWAKE, ALERT, ORIENTED, CONCERNED ABOUT UPCOMING CARDIAC CATH SCHEDULED FOR TOMORROW 05/12/17 @ 1400. PT STATES SHE WILL NOT HAVE IT DONE UNLESS SHE TALKS TO A PHYSICIAN FIRST. WILL RELAY THIS INFO. PT STATES SHE HAS A HEADACHE, ASKING FOR TYLENOL. I DID GIVE HER SUBOXONE SCHEDULED, WILL REASSESS HEADACHE AND NOTIFY PHYCIAN IF NEEDED. CONTINUE TO MONITOR CLOSELY. BED LOW, CALL LIGHT IN REACH, SIDE RAILS X 2, HOB 30 DEGREES.
[2017-05-12 04:00] VITALS: BP 97/36
--- NOTE | 2017-05-12 06:03 | NUR ---
PT CALLED ASKING FOR LEMON KOTZEBUE SODA, STATING THAT SHE WAS NOT GOING TO HAVE THE CARDIAC CATH UNTIL SHE SPOKE TO A PHYSICIAN FIRST. PT WAS IN TEARS AND STATED THAT SHE HAS HAD COMPLICATIONS PREVIOUSLY, AND NEEDS TO BE REASSURED. LEMON KOTZEBUE SODA GIVEN TO PT EVEN THOUGH SHE IS NPO AT THIS TIME. PT IS AWARE THAT SHE IS GOING AGAINST A PHYSICIANS ORDER. PT IS ALSO C/O HER NASAL PASSAGE BEING EXTREMELY DRY AND BLEEDING WHEN SHE BLOWS HER NOSE. HUMIDITY APPLIED TO O2. CONTINUE TO MONITOR CLOSELY.
[2017-05-12 06:23] LABS: BASOPHILS 0.3 % (0-2); EOSINOPHILS 10.3 % (0-7); HEMOGLOBIN 8.6 g/dL (12-16); IMMATURE GRANULOCYTES 0.1 % (0-5); LYMPHOCYTES 12.7 % (15-50); MCH 28.6 pg (26.0-34.0); MCHC 30.7 g/dL (31.0-37.0); MEAN PLATELET VOLUME 10.2 fL (7.4-10.4); MONOCYTES 6.1 % (2-11); NEUTROPHILS 70.5 % (40-80); PLATELET COUNT 170 10x3/uL (130-400); RBC 3.01 10x6/uL (4.00-5.40); RDW 16.9 % (11.5-14.5); WBC 6.7 10x3/uL (4.8-10.8)
[2017-05-12 07:01] LABS: ANION GAP 13.8 mmol/L (8-16); CALCIUM 8.5 mg/dL (8.5-10.1); CARBON DIOXIDE 27.4 mmol/L (21.0-32.0); CREATININE - SERUM 1.4 mg/dL (0.6-1.3); POTASSIUM - SERUM 5.2 mmol/L (3.5-5.1)
--- NOTE | 2017-05-12 08:13 | NUR ---
PATIENT REFUSES TO SIGN CONSENT FOR CATH. 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 PT INFORMED OF NPO STATUS. SHE IS NOT HAPPY.
[2017-05-12 10:02] VITALS: BP 97/44
[2017-05-12 14:42] VITALS: BP 96/37
--- NOTE | 2017-05-12 15:42 | NUR ---
BACK FROM INFORMATION TECHNOLOGY INSTRUCTOR. VS WNL. RIGHT GROIN STABLE WITHOUT BLEEDING OR HEMATOMA NOTED. WILL MONITOR.
[2017-05-12 17:48] VITALS: BP 114/58
[2017-05-12 19:00] VITALS: BP 103/57
--- NOTE | 2017-05-12 19:20 | NUR ---
SHIFT ASSESSMENT COMPLETE. PATIENT COMPLAINED OF IV BEING PAINFUL, AND LEAKING. SITE WITH SLIGHT REDNESS AT SITE, AND UNABLE TO GET BLOOD RETURN. IV RESTARTED IN L POSTERIOR FA X1 STICK WITH 18G CATH, GOOD BLOOD RETURN NOTED.
--- NOTE | 2017-05-12 22:00 | NUR ---
PATIENT RESTING QUIETLY WITH EYES CLOSED. CALL LIGHT WITHIN REACH, AND BED IN LOW POSITION.
[2017-05-12 23:55] VITALS: BP 103/57
--- NOTE | 2017-05-13 00:16 | NUR ---
PATIENT SLEEPING WITH SNORING RESPIRATION. CALL LIGHT WITHIN REACH, AND BED IN LOW POSITION.
--- NOTE | 2017-05-13 03:28 | NUR ---
PATIENT SITTING UP ON BEDSIDE WITHOUT ASSIST. PATIENT STATES SHE WENT TO THE RESTROOM. CALL LIGHT WITHIN REACH AND BED IN LOW POSITION. IV NS INFUSING AT 50ML/HR.
[2017-05-13 06:09] LABS: BASOPHILS 0.3 % (0-2); EOSINOPHILS 9.8 % (0-7); HEMOGLOBIN 8.2 g/dL (12-16); IMMATURE GRANULOCYTES 0.2 % (0-5); LYMPHOCYTES 14.1 % (15-50); MCH 29.4 pg (26.0-34.0); MCHC 31.5 g/dL (31.0-37.0); MCV 93.2 fL (80.0-100.0); MONOCYTES 6.2 % (2-11); NEUTROPHILS 69.4 % (40-80); PLATELET COUNT 178 10x3/uL (130-400); RBC 2.79 10x6/uL (4.00-5.40); RDW 16.8 % (11.5-14.5); WBC 6.3 10x3/uL (4.8-10.8)
[2017-05-13 06:24] VITALS: BP 102/49
[2017-05-13 06:25] LABS: ANION GAP 12.3 mmol/L (8-16); CALCIUM 8.6 mg/dL (8.5-10.1); CARBON DIOXIDE 28.4 mmol/L (21.0-32.0); CREATININE - SERUM 1.2 mg/dL (0.6-1.3); POTASSIUM - SERUM 4.7 mmol/L (3.5-5.1)
--- NOTE | 2017-05-13 06:29 | NUR ---
PATIENT SITTING UP IN BED WATCHING TV. PATIENT DENIES ANY NEEDS AT THIS TIME. CALL LIGHT WITHIN REACH, AND BED IN LOW POSITION.
--- NOTE | 2017-05-13 07:53 | NUR ---
AM ROUNDING DONE WITH PATIENT RECEIVING AN UPDRAFT TREATMET AT THIS TIME. ON 2L PER NC. RIGHT FA SEEN WITH 1/2 NS INFUSING AT 50 CC/HR. ON HEART MONITOR SHOWING SR, HR 67. DENIES ANY FURTHER NEEDS AT THIS TIME. WILL CPOC.
[2017-05-13 08:00] VITALS: BP 89/45
--- NOTE | 2017-05-13 11:21 | NUR ---
PATIENT TO REFUSE THE MYCOMISTY.
[2017-05-13 12:00] VITALS: BP 92/52
--- NOTE | 2017-05-13 13:25 | OP ---
PATIENT NAME: RADHA MARIE MEDICAL RECORD: [id number] :72 LOCATION:D. D.2123 ADMISSION DATE:05/04/17 SURGEON: MANISH WYNN MD OPERATION DATE: 05/12/17 PROCEDURE: Right heart catheterization. PROCEDURE IN DETAIL: After the right femoral vein was cannulated, a [place]-Jeremiah catheter was placed into the right atrium, right ventricle and pulmonary artery pressures. FINDINGS: Pulmonary artery pressure at start point was 87/32. IV adenosine was increased at 100 mcg and then 200 mcg/kg per minute. Initial pressure was 87/32, at 100 mcg/kg per minute pulmonary artery pressure was 81/50, and finally at 200 mcg/kg per minute pulmonary artery pressure was 66/34. Right atrial pressure was mean of 38. Right ventricular pressure was 102/10 with a mean of 26. IMPRESSION: Greater than 10% drop in pulmonary artery systolic pressures at maximum infusion of intravenous adenosine. MANISH WYNN MD at 1325 CC: [id number] DICTATION DATE: 05/12/17 1500 CALL BOX WIRER: DEDE 05/13/17 1142 ADM IN [facility] [address] [id number]
[2017-05-13 16:00] VITALS: BP 110/46
[2017-05-14 04:00] VITALS: BP 98/52
[2017-05-14 06:14] LABS: BASOPHILS 0.3 % (0-2); EOSINOPHILS 9.6 % (0-7); HEMATOCRIT 25.7 % (36.0-48.0); HEMOGLOBIN 7.9 g/dL (12-16); IMMATURE GRANULOCYTES 0.3 % (0-5); LYMPHOCYTES 11.9 % (15-50); MCH 28.5 pg (26.0-34.0); MCHC 30.7 g/dL (31.0-37.0); MCV 92.8 fL (80.0-100.0); MEAN PLATELET VOLUME 9.9 fL (7.4-10.4); MONOCYTES 7.5 % (2-11); NEUTROPHILS 70.4 % (40-80); PLATELET COUNT 175 10x3/uL (130-400); RBC 2.77 10x6/uL (4.00-5.40); RDW 16.4 % (11.5-14.5); WBC 6.2 10x3/uL (4.8-10.8)
--- NOTE | 2017-05-14 06:14 | NUR ---
PT C/O ANXIETY, MEDICATED WITH XANAX 0.25 MG PO GIVEN AT THIS TIME. WILL MONITOR.
[2017-05-14 06:47] LABS: ANION GAP 11.8 mmol/L (8-16); CALCIUM 8.6 mg/dL (8.5-10.1); CARBON DIOXIDE 28.1 mmol/L (21.0-32.0); CREATININE - SERUM 1.1 mg/dL (0.6-1.3); POTASSIUM - SERUM 4.9 mmol/L (3.5-5.1)
[2017-05-14 08:07] VITALS: BP 106/52
--- NOTE | 2017-05-14 09:44 | NUR ---
AWAKE CO PAIN. SOB. LUNGS WHEEZING ON INSPIRATION. O2 ON.
--- NOTE | 2017-05-14 09:46 | NUR ---
HAVE SPOKE WITH PATIENT, EXPLAINED THAT DR DOVER HAS PUT IN AN ORDER TO FOR US TO SEE IF THE PATIENT QUALIFIES FOR PORTABLE OXYGEN. EXPLAINED THAT RESPIRATOR
--- NOTE | 2017-05-14 09:50 | NUR ---
HAVE SPOKE WITH PATIENT, EXPLAINED THAT DR DOVER HAS PUT IN AN ORDER TO FOR US TO SEE IF THE PATIENT QUALIFIES FOR PORTABLE OXYGEN. EXPLAINED THAT RESPIRATORY WAS GOING TO COME AND TEST. SHE STATED THAT SHE IS A CURRENT PATIENT OF [facility] AND IF SHE QUALIFIES THAT IS WHO WE WOULD NEED TO CONTACT. WILL WAIT FOR RESULTS FROM RESPIRATORY.
[2017-05-14 12:06] VITALS: BP 108/46
--- NOTE | 2017-05-14 13:35 | NUR ---
Nutrition follow-up: Diet: Low sodium PO intake 75-100% of meals Pt s/p heart cath today Wt: 291# RDN following.
[2017-05-14 14:44] VITALS: BP 105/39
[2017-05-14 20:00] VITALS: BP 102/42
--- NOTE | 2017-05-14 21:19 | NUR ---
SPO2 AT REST ON RA 95%. SPO2 DURING AMBULATION 92%
[2017-05-15] VITALS: BP 127/46
[2017-05-15 05:32] LABS: BASOPHILS 0.4 % (0-2); EOSINOPHILS 7.6 % (0-7); HEMATOCRIT 25.5 % (36.0-48.0); HEMOGLOBIN 7.9 g/dL (12-16); IMMATURE GRANULOCYTES 0.2 % (0-5); LYMPHOCYTES 16.6 % (15-50); MCH 28.4 pg (26.0-34.0); MCV 91.7 fL (80.0-100.0); MEAN PLATELET VOLUME 9.6 fL (7.4-10.4); MONOCYTES 7.8 % (2-11); NEUTROPHILS 67.4 % (40-80); PLATELET COUNT 164 10x3/uL (130-400); RBC 2.78 10x6/uL (4.00-5.40); RDW 15.9 % (11.5-14.5); WBC 5.3 10x3/uL (4.8-10.8)
[2017-05-15 05:45] LABS: ANION GAP 8.3 mmol/L (8-16); CALCIUM 9.1 mg/dL (8.5-10.1); CARBON DIOXIDE 31.4 mmol/L (21.0-32.0); POTASSIUM - SERUM 4.7 mmol/L (3.5-5.1)
--- NOTE | 2017-05-15 07:28 | NUR ---
ASSESSMENT DONE. DENIES NEEDS AT THIS TIME.
[2017-05-15 08:22] VITALS: BP 121/69
--- NOTE | 2017-05-15 09:55 | NUR ---
RESP UL ON 02 2L NC. RESTS WITH EYES CLOSED. CALL LIGHT IN REACH. WILL CONT. PLAN OF CARE.
[2017-05-15 16:40] VITALS: BP 130/51
--- NOTE | 2017-05-15 17:01 | NUR ---
FIRST UNIT OF BLOOD HUNG PER MILORN
[2017-05-15 19:00] VITALS: BP 120/84
--- NOTE | 2017-05-15 19:45 | NUR ---
2ND UNIT PRBC'S STARTED FOR TRANSFUSION TO RIGHT FOREARM IV 18 GA ANGIOCATH. ORDER REVIEWED, BLOOD CONSENTS ASSURED TO BE SIGNED AND ON THE CHART. BLOOD IDENTIFICATION COMPLETED WITH NURSES X2 AT THE BEDSIDE. WILL MONITOR FOR ADVERSE REACTIONS.
--- NOTE | 2017-05-15 19:45 | NUR ---
1ST UNIT PRBC'S TRANSFUSED WITHOUT ADVERSE REACTION NOTED. PT TOLERATED WELL. VSS. AFEBRILE. WILL START 2ND UNIT ORDERED.
--- NOTE | 2017-05-15 22:06 | NUR ---
PT TOLERATING BLOOD TRANSFUION WELL, VSS, AFEBRILE. NO S/S OF ADVERSE REACTIONS NOTED.
[2017-05-16 02:18] VITALS: BP 123/64
--- NOTE | 2017-05-16 03:30 | NUR ---
PT RESTING WELL WITHOUT C/O OR DISTRESS NOTED. CALL LIGHT WITHIN REACH.
[2017-05-16 05:00] VITALS: BP 139/71
[2017-05-16 05:09] LABS: BASOPHILS 0.5 % (0-2); EOSINOPHILS 8.1 % (0-7); HEMATOCRIT 29.1 % (36.0-48.0); HEMOGLOBIN 9.2 g/dL (12-16); IMMATURE GRANULOCYTES 0.3 % (0-5); LYMPHOCYTES 13.9 % (15-50); MCH 28.4 pg (26.0-34.0); MCHC 31.6 g/dL (31.0-37.0); MCV 89.8 fL (80.0-100.0); MEAN PLATELET VOLUME 9.7 fL (7.4-10.4); NEUTROPHILS 68.2 % (40-80); PLATELET COUNT 165 10x3/uL (130-400); RBC 3.24 10x6/uL (4.00-5.40); RDW 15.8 % (11.5-14.5); WBC 6.3 10x3/uL (4.8-10.8)
[2017-05-16 05:24] LABS: ANION GAP 11.5 mmol/L (8-16); CALCIUM 8.8 mg/dL (8.5-10.1); CARBON DIOXIDE 28.3 mmol/L (21.0-32.0); CREATININE - SERUM 1.2 mg/dL (0.6-1.3); POTASSIUM - SERUM 4.8 mmol/L (3.5-5.1)
--- NOTE | 2017-05-16 05:30 | NUR ---
PT IV LEAKING AT THE SITE, REMOVED ANGIOCATH AND DRESSING PLACED. PT STATES NOT WANTING TO BE RESITED UNTIL ABLE TO SPEAK WITH PHYSICIAN. PT STATES SHE IS HOPING SHE WILL BE ABLE TO GO HOME TODAY. WILL MONITOR
[2017-05-16 08:16] VITALS: BP 113/57
[2017-05-16 11:59] VITALS: BP 123/66
[2017-05-16 16:05] VITALS: BP 119/55
[2017-05-16 19:00] VITALS: BP 127/76
--- NOTE | 2017-05-16 19:37 | NUR ---
RESUMED CARE OF PT, UP ON SIDE OF BED RESPIRATIONS EVEN AND UNLABORED ON 2LPM VIA NC. 71 SR ON TELEMETRY. XANAX AND TYELENOL GIVEN PER PT REQUEST. CALL LIGHT IN REACH. WILL CONTINUE TO MONITOR. SEE NURSE ASSESSMENT.
--- NOTE | 2017-05-17 01:05 | NUR ---
CALL LIGHT IN REACH, WILL CONTINUE WITH PLAN OF CARE.
[2017-05-17 04:00] VITALS: BP 117/68
[2017-05-17 06:06] LABS: BASOPHILS 0.2 % (0-2); HEMATOCRIT 29.8 % (36.0-48.0); HEMOGLOBIN 9.6 g/dL (12-16); IMMATURE GRANULOCYTES 0.2 % (0-5); LYMPHOCYTES 17.1 % (15-50); MCH 29.2 pg (26.0-34.0); MCHC 32.2 g/dL (31.0-37.0); MCV 90.6 fL (80.0-100.0); MEAN PLATELET VOLUME 9.9 fL (7.4-10.4); MONOCYTES 8.5 % (2-11); PLATELET COUNT 190 10x3/uL (130-400); RBC 3.29 10x6/uL (4.00-5.40); RDW 16.2 % (11.5-14.5); WBC 5.4 10x3/uL (4.8-10.8)
[2017-05-17 06:27] LABS: ANION GAP 12.4 mmol/L (8-16); CREATININE - SERUM 1.1 mg/dL (0.6-1.3); DIGOXIN 0.47 ng/mL (0.90-2.00); POTASSIUM - SERUM 4.4 mmol/L (3.5-5.1)
--- NOTE | 2017-05-17 06:30 | NUR ---
NO CHANGES FROM PREVIOUS ASSESSMENT, 64 SR WITH 1ST DEGREE AVB ON TELEMETRY
--- NOTE | 2017-05-17 07:43 | NUR ---
ASSESSMENT COMPLETED. COUGHING UP CLEAR SPUTUM. C/O ANXIETY AND HEADACHE. XANAX AND TYLENOL GIVEN.TELEMERTY SHOWS SR 74. PT IS UP AB CEM. SHE HAS NO IV OR 02. WILL MONITOR
[2017-05-17 08:00] VITALS: BP 152/76
--- NOTE | 2017-05-17 10:00 | NUR ---
RESTING QUIETLY DENIES ANY NEEDS AT THIS TIME NAD NOTED
[2017-05-17 12:00] VITALS: BP 124/65
--- NOTE | 2017-05-17 13:00 | NUR ---
UP ON SIDE OF BED FOR DIET. DENIES ANY NEEDS. CALL LIGHT IN REACH WITH SR UP. WILL MONITOR
[2017-05-17] MEDS ORDERED: FERROUS SULFAT325 MG PO (15:00)
[2017-05-17] MEDS ORDERED: LASIX40 MG PO (15:01)
[2017-05-17] MEDS ORDERED: LANOXIN125 MCG PO (15:01)
[2017-05-17] MEDS ORDERED: SYNTHROID25 MCG PO (15:02)
[2017-05-17 16:43] VITALS: BP 121/63
--- NOTE | 2017-05-17 17:42 | NUR ---
PT DISCHARGED. TO PRIVATE CAR PER WHEELCHAIR.
== END 2017-05-17 17:47 | disposition home or self-care (01) | DRG 286 ==
LOC: D.ER 19:39 → D.MS 21:14 → D.M2 21:14 → D.ER 21:14 → D.M2 22:11
PROVIDERS: Emergency Medicine; Internal Medicine Interventional Cardiology; Internal Medicine Nephrology; Internal Medicine Pulmonary Disease; ADMIT Emergency Medicine
PROC: 4A023N6 Measurement of Cardiac Sampling and Pressure, Right Heart, Percutaneous Approach (ICD-10-PCS; 2017-05-12)
PROC: B2141ZZ Fluoroscopy of Right Heart using Low Osmolar Contrast (ICD-10-PCS; principal; 2017-05-12 14:00)
DX: I11.0 Hypertensive heart disease with heart failure (principal); J96.21 Acute and chronic respiratory failure with hypoxia; J44.1 Chronic obstructive pulmonary disease with (acute) exacerbation; N17.9 Acute kidney failure, unspecified; E87.2 Acidosis; F17.203 Nicotine dependence unspecified, with withdrawal; Z68.41 Body mass index [BMI] 40.0-44.9, adult; I50.33 Acute on chronic diastolic (congestive) heart failure; G47.33 Obstructive sleep apnea (adult) (pediatric); I27.2 Other secondary pulmonary hypertension; R41.82 Altered mental status, unspecified; Z91.19 Patient's noncompliance with other medical treatment and regimen; E87.5 Hyperkalemia; I07.1 Rheumatic tricuspid insufficiency; E83.51 Hypocalcemia; I95.9 Hypotension, unspecified; D64.9 Anemia, unspecified; E03.9 Hypothyroidism, unspecified; E66.01 Morbid (severe) obesity due to excess calories

== ENCOUNTER → 2017-11-23 14:40 | Outpatient (CLI) | payer MEDICARE ==
[2017-05-05 14:19] VITALS: BMI 45.1
[~2017-11-23 14:40] MED LIST changes: +FERROUS SULFAT325 MG PO; +LANOXIN125 MCG PO; +SYNTHROID25 MCG PO
[2017-11-23 15:20] LABS: UDS - AMPHET NEGATIVE QUAL (NEGATIVE); UDS - BARB NEGATIVE QUAL (NEGATIVE); UDS - BENZO POSITIVE QUAL (NEGATIVE); UDS - COCAINE NEGATIVE QUAL (NEGATIVE); UDS - OPIATE NEGATIVE QUAL (NEGATIVE); UDS - PCP NEGATIVE QUAL (NEGATIVE); UDS - THC NEGATIVE QUAL (NEGATIVE)
== END | disposition home or self-care (01) ==
LOC: D.LAB 14:40
PROVIDERS: Emergency Medicine
DX: F11.20 Opioid dependence, uncomplicated (principal)

== ENCOUNTER 2020-04-28 18:20 | Inpatient (IN) | payer MEDICARE ==
[2020-04-28] VITALS (12 sets, daily range): BP systolic 80–94; BP diastolic 18–77; BMI 47.4
[~2020-04-28] VITALS: Ht 172.7 cm; Wt 139.8 kg
--- NOTE | ~2020-04-28 | HEMODYNAMI ---
PATIENT:RADHA MARIE MEDICAL RECORD: [id number] : 72 [facility] ADMISSION DATE: 04/28/20 Generatedon:04/28/202023:39 Patient name: RADHA MARIE Patient #: [id number] SSN: D OB: 1970 Date of study: 04/28/2020 Page: Of Hemodynamic Procedure Report Patient Data Patient Demographics First Name: RADHA Gender: Female Last Name: FRANK : 1970 Patient #: [id number] Age: 49 year(s) Race: Unknown Additional ID: [id number] Contact details [address]: [address] [place] [address] State: [place] City: [facility] Zip code: [address] Past Medical History Allergies Allergen Reaction Date Comments Reported Other allergy 04/28/2020 bupropin, darvocet Admission Admission Data Admission Date: 04/28/2020 Admission Time: 20:00 Room #: D.2302 Procedure Procedure Types Cath Procedure Peripheral Cath Diagnostic Procedure Thoracic/Pulmonary Pulmonary Arteriogram Bilat Procedure Description Procedure Date Procedure Date: 04/28/2020 Procedure Start Time: 23:05 Procedure End Time: 23:38 Procedure Staff Name Function Cj Cruz MD Performing Physician KYRA JENSEN RT Monitor Angel Barbosa RT Scrub Callie Portillo RN Nurse Procedure Data Cath Procedure Fluoroscopy Diagnostic fluoroscopy Total fluoroscopy Time: 2.9 time: 2.9 min min Diagnostic fluoroscopy Total fluoroscopy dose: 436 dose: 436 mGy mGy Contrast Material Contrast Material Type Amount (ml) Isovue 300 50 Entry Location Entry Primary Successful Side Size Upsize Upsize Entry Closure Succes sful Closure Location (Fr) 1 (Fr) 2 (Fr) Remarks Device Remarks Jugular Right 6 Fr vein Short Diagnostic catheters Device Type Used For End Catheter Placement Merit ULTRA BOLUS FLUSH 5Fr 65CM catheter ([id number]) Levlr Cobra 2 5F catheter ([id number]) Procedure Medications Medication Administration Route Dosage Heparin Flush Bag added to field 3 bags (1000units/500ml NS) Lidocaine 1% added to field 20 Benadryl I.V. 25 mg Hemodynamics Rest Heart Rate: 159 (bpm) Snapshots Pre Cath Intra NCS Post Cath Vital Signs Time Heart Resp SPO2 etCO2 NIBP (mmHg) Rhythm Pain Sedation Rate (ipm) (%) (mmHg) Status Level (bpm) 22:41:58 22.4 150/130(143) NSR 0 (11) 10(A) , No pain 22:46:57 25 32.2 Measuring NSR 0 (11) 10(A) , No pain 22:47:26 18 20.9 101/28(72) NSR 0 (11) 10(A) , No pain 22:51:42 101 14 93 20.9 45/34(42) NSR 0 (11) 10(A) , No pain 22:53:41 104 11 93 12.7 54/32(44) NSR 0 (11) 10(A) , No pain 22:56:47 106 21 92 23.9 78/53(60) NSR 0 (11) 10(A) , No pain 23:00:53 95 22 91 23.2 98/50(92) NSR 0 (11) 10(A) , No pain 23:05:52 71 22 99 15.7 Measuring NSR 0 (11) 10(A) , No pain 23:06:27 100 23 2.9 157/135(152) NSR 0 (11) 10(A) , No pain 23:09:52 218 20 96 2.9 Disturbed NSR 0 (11) 10(A) , No pain 23:13:17 122 13 11.2 Time NSR 0 (11) 10(A) Exceeded , No pain 23:18:16 103 16 0 130/97(107) NSR 0 (11) 10(A) , No pain 23:23:15 104 15 92 0 Measuring NSR 0 (11) 10(A) , No pain 23:23:43 106 24 86 0 97/84(93) NSR 0 (11) 10(A) , No pain 23:28:10 0 No Cuff NSR 0 (11) 10(A) , No pain 23:31:44 0 No Cuff NSR 0 (11) 10(A) , No pain 23:35:44 0 No Cuff NSR 0 (11) 10(A) , No pain Medications Time Medication Route Dose Verified Delivered Reason Notes Effe ctiveness by by 22:22:34 Heparin Flush added 3 Cj Corona used for Bag to bags Anthony Cruz procedure (1000units/500ml field MD BARBOZA NS) 22:22:46 Lidocaine 1% added 20ml Cj Corona for local to vial Anthony Cruz anesthetic field MD BARBOZA 23:00:06 Benadryl I.V. 25 mg Cj Ledesma Per Anthony Portillo RN physician MD Procedure Log Time Note 22:19:08 Use device set IR Diagnostic 22:19:10 ACIST Syringe (41421) opened to sterile field. 22:19:10 ACIST Hand Control (56138) opened to sterile field. 22:19:10 ACIST Manifold (75370) opened to sterile field. 22:19:11 Bag Decanter (2001S) opened to sterile field. 22:19:11 Sterile Angiographic Pack opened to sterile field. 22:19:12 Tegaderm 4 x 4 (1626W) opened to sterile field. 22:20:04 BENTSON 145cm wire (O18022) opened to sterile field. 22:20:04 GLIDE CATHETER 5FR COBRA 100cm (CG503) opened to sterile field. 22:20:05 GLIDE WIRE ANGLE 180cm (SZ8728) opened to sterile field. 22:20:06 A Liiiike ULTRA BOLUS FLUSH 5Fr 65CM catheter ([id number]) was opened t o sterile field . 22:20:08 MICROPUNCTURE 4FR Cook (P66791) opened to sterile field. 22:20:09 SHEATH 6FR [place] (JEQ798) opened to sterile field. 22:21:40 TUBING Contrast Injection High Pressure (PFO514L) opened to sterile field. 22:21:40 TUBING Contrast Injection High Pressure (SFG235A) opened to sterile field. 22:21:44 - 22:22:34 Heparin Flush Bag (1000units/500ml NS) 3 bags added to field was administered by Cj Cruz MD; used for procedure; Verbal order read back and verified. 22:22:46 Lidocaine 1% 20ml vial added to field was administered by Cj mistry MD; for local anesthetic; Verbal order read back and verified. 22:40:18 Patient received from ED to IR Alert and oriented. Tansferred to table in Supine position. 22:40:59 Vital chart was started 22:41:00 Baseline sample Acquired. 22:43:52 A Levlr Cobra 2 5F catheter (O98119) was opened to sterile field. 22:44:07 Full Disclosure recording started 22:44:09 Baseline sample Acquired. 22:44:19 Pre-procedure instructions explained to patient. 22:44:22 H&P Date Dictated: 04/28/2020 ER History on chart.. 22:44:27 Family in patients room. 22:50:49 Patient allergic to Other allergybupropin, darvocet 22:51:06 Is the patient allergic to Iodine/contrast media? No. 22:51:11 Is patient on blood thinner?Yes. Heparin 22:51:18 Patient diabetic? No. 22:51:20 - 22:51:21 ----unable to complete Pre-sedation anethesia assessment. patient AMS---- 22:59:37 Right neck area was prepped with chlora-prep and draped in sterile fashion 22:59:38 Alarms reviewed by R. N. :59:38 Sharps counted by scrub and verified by R.N. 22:59:40 Physician arrived 22:59:40 --------ALL STOP TIME OUT------ 22:59:41 Final Timeout: patient, procedure, and site verified with staff and physician. All members of the team are in agreement. :59:44 Right neck site verified by team. 22:59:48 Fire Safety Assessment: A--An alcohol-based skin anteseptic being used preoperatively., C--Open oxygen or nitrous oxide is being used. 22:59:50 5) <15 or on dialysis Very severe, or end stage kidney failure. 23:00:06 Benadryl 25 mg I.V. was administered by Callie Portillo RN; Per physician ; Verbal order read back and verified. 23:00:34 Procedure started. 23:01:52 Access obtained with 4Fr micropunture. 23:03:03 A 6 Fr Short sheath was inserted into the Right Jugular vein 23:05:51 Local anesthetic to right IJ with Lidocaine 1% by Cj Cruz MD.INITIAL ACCESS ONLY 23:06:40 LEMONS 260 wire (S70109) opened to sterile field. 23:14:13 Procedure ended.(Physican Out) 23:15:11 Fluoroscopy time 02.90 minutes. 23:15:17 Fluoroscopy dose: 436 mGy 23:15:17 Flurop Dose total: 436 23:15:21 Contrast amount:Isovue 300 50ml. 23:15:43 Sharps counted by scrub and verified by R.N. 23:15:53 Post-op/insertion site Right IJ dressed using a 4 x 4 and Tegaderm. 23:16:33 Post right IJ vein:stable, clean and dry 23:16:37 Post procedure instruction explained to patient.Patient verbalizes understanding. 23:16:39 Procedure and supply charges have been captured, reviewed, submitted an d are correct. 23:38:56 Patient transfered to ICU with Bed. 23:38:58 Procedure ended. 23:38:58 Full Disclosure recording stopped 23:39:18 Vital chart was stopped Device Usage Item Name Manufacture Quantity Catalog Number Hospital Part Current [facility] Lot# / Charge Number Stock Stock Serial# Code Medline Cath Medline 1 [id number] 84778 [id number] 5 Pack ([id number]) MULTIPACK JL Cardinal 1 [id number] 5 4.0 5Fr Health catheter MULTIPACK Cardinal 1 [id number] 5 Pigtail 5 Fr Health catheter MULTIPACK 3DRC Cardinal 1 218472 5 5Fr catheter Health ACIST Syringe Acist 1 84915 242265 497102 030104 20 (62352) Pivot3 Inc ACIST Hand Acist 1 00807 988135 634054 266555 5 Control Medical (28077) Systems Inc ACIST Manifold Acist 1 08241 180382 383823 749528 5 (71982) Medical Systems Inc Bag Decanter Microtek 1 2001S 790993 91039 993245 5 (2001S) Medical Inc. Sterile Cardinal 1 [id number] 012906 043857 5 Angiographic Health Pack Tegaderm 4 x 4 3M 1 1626W 161762 230619 448425 5 (1626W) BENTSON 145cm Cook Medical 1 T67667 850331 311551 5 wire (B55941) GLIDE CATHETER Terumo 1 CG503 185037 727188 5 5FR COBRA 100cm (CG503) GLIDE WIRE Terumo 1 LS4974 733651 672615 968689 5 ANGLE 180cm (RC4003) Merit ULTRA Merit 1 [id number] 280534 680196 5 BOLUS FLUSH Medical 5Fr 65CM catheter ([id number]) MICROPUNCTURE Cook Medical 1 D59673 914007 154918 345945 5 4FR Cook (T22545) SHEATH 6FR Terumo 1 TBF173 052093 298475 774326 40 [place] (WVZ515) TUBING Merit 2 IPH160F 982839 888359 866670 5 Contrast Medical Injection High Pressure ([id number]) Cook Cobra 2 Cook Medical 1 Q70648 796763 691997 5 5F catheter (A17644) LEMONS 260 wire Cook Medical 1 S33998 827746 94978 261342 5 [id number] ([id number]) Signature Audit May Stage Time Signature Unsigned Intra-Procedure 04/28/2020 KYRA JENSEN RT 11:39:16 PM (R) [facility] [address] [place] [address]
--- NOTE | ~2020-04-28 | HP ---
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 The patient was evaluated in the Emergency Room with the ER physician, Dr. Grimes present and the patient was hypotensive, had to be put in the Trendelenburg position. IV fluids were vigorously given, first 500 cc bolus and blood pressure was up to 90/20 initially, heart rate was low at 58, sepsis protocol was followed and code sepsis was initiated. ER and ICU nurses were involved. The patient had lab that was drawn. Chest x-ray performed. Did have records from the EMS, but the patient was somnolent, difficult to arouse, would not be able to give any history. It has been 3 years since she was seen in this hospital and so the old records were not up to date. There is a bag of medications that are listed on the MAR sheet that was provided by the ambulance service that was picked up at the home. Evidently, the patient has been home bound and had been followed by other facility's home health for wound care, for her bilateral venous stasis ulcers, and her chronic lung problems. The patient was unstable and so ICU admission was initiated, did have a proper CT of the head, chest, abdomen, and pelvis without contrast. Laboratory drawn; initially given 1 gram of Merrem to be able to have something for the sepsis concern and physical exam was performed. PHYSICAL EXAMINATION: GENERAL: She is somnolent, obese 49-year-old white female that is in moderate distress. She does arouse to painful stimuli, will answer yes/no, but not appropriately. HEENT: Her pupils are sluggish. Moist mucous membranes are noted. LUNGS: Have shallow respirations and rales in the bases bilaterally. HEART: Has a shifted maximum impact point and has II/ blowing murmur. ABDOMEN: Distended, soft, nontender, positive bowel sounds. No masses. EXTREMITIES: Has evidence of venous stasis ulcers and venous stasis chronic changes in the bilateral lower extremities up to the knee region. Has evidence of superficial ulcers on the left leg and calluses on the right leg, has 2 second cap refill, 1+ DP pulse and has evidence of streaking cellulitis on her bilateral thigh. The patient was given 1 gram of vancomycin after consultation with nephrology was obtained even though she has acute kidney injury versus acute renal failure with BUN and creatinine elevated. The patient was evaluated and transferred to the unit with the assessment of chest x-ray that showed significant cardiomegaly, no pleural effusions were noted. DIAGNOSES: 1. Sepsis. 2. Venous stasis ulcer. 3. Evidence of cardiomyopathy. 4. Acute renal failure versus chronic renal failure. 5. Diabetes. 6. Concern about a PE. Interventional radiology was involved, came in and did an urgent angiogram on the patient and was found to have evidence of pulmonary hypertension, but no acute clot that was seen. Nephrology was consulted. Pulmonary was consulted. Cardiology will be consulted in the morning with Dr. Wilbur Chaudhry. The patient is to be admitted to the ICU. Pulmonary HISTORY AND PHYSICAL [id number] RADHA MARIE intervention management will be initiated, antibiotics. Dr. Rodriguez has been consulted In the ER, laboratory, IV fluids, and pressor support as below. She is on Levophed other medications being held until further evaluation. Antibiotics initiated. Cultures were obtained. TRANSINT:[id number] Voice Confirmation ID: [id number] DOCUMENT ID: [id number] ELIER DANIELSON MD CC: [id number] DICTATION DATE: 04/28/20 2349 CARDBOARD INSERTER: 04/29/20 0401 ADM IN [id number] [place] [address]
[2020-04-28] MEDS ORDERED: REVATIO20 MG PO (18:27)
[2020-04-28] MEDS ORDERED: ZYLOPRIM300 MG PO (18:28)
[2020-04-28] MEDS ORDERED: XANAX0.5 MG PO (18:28)
[2020-04-28] MEDS ORDERED: FLAGYL500 MG PO (18:29)
[2020-04-28] MEDS ORDERED: LISINOPRIL2.5 MG PO (18:29)
[2020-04-28] MEDS ORDERED: BUPRENORPHIN-N1 EACH SL (18:30)
[2020-04-28 19:12] LABS: BASOPHILS 0.1 % (0-2); EOSINOPHILS 3.1 % (0-7); HEMATOCRIT 25.9 % (36.0-48.0); HEMOGLOBIN 8.2 g/dL (12-16); IMMATURE GRANULOCYTES 0.3 % (0-5); LYMPHOCYTES 2.3 % (15-50); MCHC 31.7 g/dL (31.0-37.0); MCV 88.4 fL (80.0-100.0); MEAN PLATELET VOLUME 9.2 fL (7.4-10.4); MONOCYTES 4.8 % (2-11); NEUTROPHILS 89.4 % (40-80); PLATELET COUNT 200 10x3/uL (130-400); RBC 2.93 10x6/uL (4.00-5.40); RDW 22.9 % (11.5-14.5); WBC 13.5 10x3/uL (4.8-10.8)
[2020-04-28 19:16] LABS: INR 1.45 (0.85-1.17); PROTIME 17.5 SECONDS (11.6-15.0)
[2020-04-28 19:17] LABS: APTT 33.7 SECONDS (22.8-39.4)
[2020-04-28 19:42] LABS: ALBUMIN 3.4 g/dL (3.4-5.0); ALKALINE PHOSPHATASE 84 U/L (30-120); ALT (SGPT) 8 U/L (10-68); BILIRUBIN - TOTAL 0.69 mg/dL (0.2-1.3); CALC OSMOLALITY 295 mosm/kg (275-300); CALCIUM 7.2 mg/dL (8.5-10.1); CARBON DIOXIDE 17.8 mmol/L (21.0-32.0); CHLORIDE - SERUM 98 mmol/L (98-107); CKMB 3.7 U/L (0.0-3.6); CREATINE KINASE 123 UL (21-215); GLUCOSE 113 mg/dL (74-106); MAGNESIUM - SERUM 2.3 mg/dL (1.8-2.4); PROTEIN - SERUM 7.2 g/dL (6.4-8.2); SODIUM 131 mmol/L (136-145); THYROID STIMULATING HORMONE 5.75 uIU/mL (0.36-3.74); eGFR NON AFRICAN AMERICAN 7 mL/min (90-120)
--- NOTE | 2020-04-28 19:45 | NUR ---
CODE SEPSIS INITIATED.
[2020-04-28 19:52] LABS: POTASSIUM - SERUM 6.5 mmol/L (3.5-5.1); TROPONIN-I 0.341 ng/mL (0.000-0.060); UREA NITROGEN 102 mg/dL (7-18)
--- NOTE | 2020-04-28 21:23 | NUR ---
MEDICATIONS, CELL PHONE, AND GOLD COLORED NECKLACE GIVEN TO YULISSA PT'S DAUGHTER WITH PT'S PERMISSION.
[2020-04-28 21:45] LABS: BILIRUBIN NEGATIVE (NEGATIVE); GLUCOSE NEGATIVE (NEGATIVE); KETONE NEGATIVE (NEGATIVE); NITRITE NEGATIVE (NEGATIVE); UROBILINOGEN NORMAL (NORMAL)
[2020-04-28 21:47] LABS: WHITE CELLS - URINE 0-5 /hpf (NEGATIVE)
[2020-04-28 21:48] LABS: AMORPHOUS SEDIMENT <1+ /lpf (NONE SEEN); BACTERIA MODERATE /hpf (NEGATIVE); YEAST <1+ /hpf (NONE SEEN)
[2020-04-28 22:20] LABS: BASOPHILS 0.1 % (0-2); EOSINOPHILS 2.2 % (0-7); HEMATOCRIT 25.8 % (36.0-48.0); HEMOGLOBIN 8.2 g/dL (12-16); IMMATURE GRANULOCYTES 0.4 % (0-5); LYMPHOCYTES 2.4 % (15-50); MCH 27.9 pg (26.0-34.0); MCHC 31.8 g/dL (31.0-37.0); MCV 87.8 fL (80.0-100.0); MONOCYTES 5.5 % (2-11); NEUTROPHILS 89.4 % (40-80); PLATELET COUNT 213 10x3/uL (130-400); RBC 2.94 10x6/uL (4.00-5.40); RDW 22.6 % (11.5-14.5); WBC 15.7 10x3/uL (4.8-10.8)
--- NOTE | 2020-04-28 22:32 | NUR ---
PT TO IVR
[2020-04-28 22:51] LABS: ANION GAP 21.2 mmol/L (8-16); CALCIUM 7.8 mg/dL (8.5-10.1); CARBON DIOXIDE 16.8 mmol/L (21.0-32.0); CREATININE - SERUM 6.9 mg/dL (0.6-1.3)
[2020-04-28 22:53] LABS: TROPONIN-I 0.412 ng/mL (0.000-0.060)
[2020-04-29] VITALS (96 sets, daily range): BP systolic 57–130; BP diastolic 24–82; Ht 172.7 cm; Wt 139.8 kg
[2020-04-29] MEDS ORDERED: SYNTHROID75 MCG PO (00:15)
[2020-04-29] MEDS ORDERED: LASIX40 MG PO (00:16)
--- NOTE | 2020-04-29 02:36 | NUR ---
2330- REC'D PATIENT FROM WITH CHATO RN AT SIDE. ATTACHED PATIENT TO ICU MONITORS. PATIENT WAS TAKING OFF OXYGEN AND PULLING OFF LINES. RESTRAINTS APPLIED. WHEN ARRIVED, PT O2 SAT AT ARRIVAL WAS 79-80%. TO GET PATIENT TO AT LEAST 92%, 8 L HF NC APPLIED. ON ARRIVAL, PIV 20G TO RIGHT FOREARM AND LEFT FOREARM. DURING ADMISSION, LEFT FOREARM CAME OUT, TIP WAS INTACT. 2 NEW PIV, 2OG APPLIED TO LEFT FOREARM AND LEFT UPPERARM. ABLE TO ANSWER PERSON, PLACE, TIME, AND SITUATON BUT OTHERWISE COULD NOT ANSWER ANY OTHER QUESTIONS. USED DOPPLER FOR PULSES ON RIGHT RADIAL, LEFT AND RIGHT PEDAL PULSES. WOUNDS ON BILATERAL LEGS. ON ARRIVAL, LEVOPHED AT 20 MCG/MIN, HAD TO INCREASE TO 30 MCG/MIN BY END OF ADMISSION. BP STAYING WITHIN PARAMETERS. DAUGHTER, MOSES, CAME IN TO SEE PATIENT AND PASSCODE WAS GIVEN WITH TIMES FOR VISITATION. ALL BELONGINGS WENT HOME WITH HER. BICARB GTT WAS STARTED PER ORDERS. HEPARIN GTT WAS STOPPED IMMEDIATELY ON ARRIVAL PER DR. DANIELSON APPROVAL SUGGESTED BY DR. BUTCHER.
--- NOTE | 2020-04-29 03:07 | NUR ---
0100- REPOSITIONED. [id number] COMPLETED.
[2020-04-29 04:19] LABS: ALBUMIN 3.6 g/dL (3.4-5.0); BILIRUBIN - TOTAL 0.73 mg/dL (0.2-1.3); CALCIUM 7.7 mg/dL (8.5-10.1); CARBON DIOXIDE 20.3 mmol/L (21.0-32.0); CREATININE - SERUM 6.8 mg/dL (0.6-1.3); PROTEIN - SERUM 7.8 g/dL (6.4-8.2)
[2020-04-29 04:30] LABS: ANION GAP 21.2 mmol/L (8-16); POTASSIUM - SERUM 6.5 mmol/L (3.5-5.1)
[2020-04-29 04:36] LABS: HEMATOCRIT 29.1 % (36.0-48.0); HEMOGLOBIN 9.1 g/dL (12-16); MCH 27.2 pg (26.0-34.0); MCHC 31.3 g/dL (31.0-37.0); MCV 87.1 fL (80.0-100.0); MEAN PLATELET VOLUME 9.3 fL (7.4-10.4); PLATELET COUNT 316 10x3/uL (130-400); RBC 3.34 10x6/uL (4.00-5.40); RDW 22.6 % (11.5-14.5); WBC 20.1 10x3/uL (4.8-10.8)
--- NOTE | 2020-04-29 05:49 | NUR ---
0433. SPOKE WITH DR. DANIELSON ABOUT CRITICAL POTASSIUM. NEW ORDERS FOR FSBS ACHS WITH SLIDING SCALE. DR. DANIELSON STATED THAT PATIENT WOULD NEED DIALYSIS TODAY
[2020-04-29 06:51] LABS: CREATINE KINASE 165 UL (21-215); MAGNESIUM - SERUM 2.3 mg/dL (1.8-2.4); PHOSPHOROUS 8.4 mg/dL (2.5-4.9); URIC ACID 5.5 mg/dL (2.6-7.2); VANCOMYCIN - RANDOM 12.7 ug/mL (10.0-20.0)
[2020-04-29 06:53] LABS: DIGOXIN < 0.06 ng/mL (0.90-2.00); INR 1.16 (0.85-1.17); PROTIME 14.7 SECONDS (11.6-15.0)
--- NOTE | 2020-04-29 07:00 | NUR ---
REPORT RECEIVED. ASSESSMENT COMPLETE PER FLOW SHEET. VSS. PT RESTING COMFORTABLY WILL CONTINUE TO MONITOR
--- NOTE | 2020-04-29 07:25 | NUR ---
DR. HOBBS CAME AROUND [id number], NOTIFIED OF UOP OF 30 ML ALL NIGHT. NEW ORDERS REC'D. REC'D CONSENT FROM DAUGHTER OVER THE PHONE FOR TRIALYSIS CATHETER.
--- NOTE | 2020-04-29 07:50 | NUR ---
DR MEADE GIVEN UPDATE REGUARDING CONSULT. STATED OKAY.
[2020-04-29 08:34] LABS: UDS - AMPHET NEGATIVE QUAL (NEGATIVE); UDS - BARB NEGATIVE QUAL (NEGATIVE); UDS - BENZO NEGATIVE QUAL (NEGATIVE); UDS - COCAINE NEGATIVE QUAL (NEGATIVE); UDS - OPIATE NEGATIVE QUAL (NEGATIVE); UDS - PCP NEGATIVE QUAL (NEGATIVE); UDS - THC NEGATIVE QUAL (NEGATIVE)
--- NOTE | 2020-04-29 09:40 | NUR ---
DR MEADE AT BEDSIDE FOR TRIALYSIS CATH PLACEMENT. GIVEN UPDATE.
[2020-04-29 10:17] LABS: LYMPHOCYTES 9 % (15-50); MONOCYTES 8 % (2-11); NEUTROPHILS 83 % (40-80); PLATELET ESTIMATE NORMAL
--- NOTE | 2020-04-29 10:40 | NUR ---
CARDIOLOGY AT BEDSIDE. ECHO ORDERS RECEIVED. NO FURTHER NEW CHANGES WILL CONTINUE TO MONITOR
--- NOTE | 2020-04-29 10:48 | NUR ---
DIALYSIS AT BEDSIDE GIVEN UPDATE.
--- NOTE | 2020-04-29 11:00 | NUR ---
REASSESSMENT COMPLETE PER FLOW SHEET. VSS. PT RESTING COMFORTABLY. DENIES NEEDS WILL CONTINUE TO MONITOR
--- NOTE | 2020-04-29 13:00 | NUR ---
DAUGHTER AT BEDSIDE GIVEN UPDATE. NO NEW DELPHINENES WILL CONTINUE TO MONITOR
--- NOTE | 2020-04-29 14:00 | NUR ---
HEMODIALYSIS TREATMENT STOPPED EARLY DUE TO HYPOTENSION AND ELEVATED HEARTRATE IN 130'S, NET FLUID REMOVED WAS 1059ML. ICU STEPH SCOTT HAD MADE A DOSAGE INCREASE ON THE EPINEPHRINE HOWEVER THIS WAS NOT ENOUGH AND PATIENT'S BP WAS REMAINING TOO LOW REQUIRING BOLUS TO KEEP WNL. BP REMAINED BELOW MAP OF 60 FOR GREATER THEN 20 MINUTES WITH UF OFF WHEN DECIDED TO STOP TX.
--- NOTE | 2020-04-29 14:45 | NUR ---
DIALYSIS FINISHED. 1100 REMOVED
--- NOTE | 2020-04-29 15:00 | NUR ---
REASSESSMENT COMPLETE PER FLOW SHEET. VSS. PT RESTING COMFORTABLY WILL CONTINUE TO MONTIOR
--- NOTE | 2020-04-29 17:00 | NUR ---
PT SLEEPING. VSS. NO NEW CHANGES WILL CONTINUE TO MONITOR
--- NOTE | 2020-04-29 19:00 | NUR ---
REPORT RECEIVED. PT RESTING IN BED, NO ACUTE DISTRESS NOTED. RT IJ TRIALYSIS CATH INFUSING, SEE IV FLOWSHEET. ASSESSMENT COMPLETED, SEE FLOWSHEET. WILL CONTINUE TO MONITOR.
--- NOTE | 2020-04-29 21:00 | NUR ---
PT RESTING IN BED, NO ACUTE DISTRESS NOTED.
--- NOTE | 2020-04-29 23:00 | NUR ---
REASSESSMENT COMPLETED, SEE IV FLOWSHEET. BIPAP ON AT THIS TIME.
[2020-04-30] VITALS (82 sets, daily range): BP systolic 73–133; BP diastolic 30–113
--- NOTE | 2020-04-30 01:00 | NUR ---
PT RESTING IN BED, NO ACUTE DISTRESS NOTED.
--- NOTE | 2020-04-30 03:00 | NUR ---
REASSESSMENT COMPLETED, SEE FLOWSHEET. NO ACUTE DISTRESS NOTED.
--- NOTE | 2020-04-30 05:00 | NUR ---
PT RESTING IN BED, NO ACUTE DISTRESS NOTED. PT REPORTS "TWITCHING" OCCASIONALLY. WILL CONTINUE TO MONITOR.
[2020-04-30 06:48] LABS: CALC OSMOLALITY 295 mosm/kg (275-300); CALCIUM 7.8 mg/dL (8.5-10.1); CARBON DIOXIDE 23.5 mmol/L (21.0-32.0); CHLORIDE - SERUM 100 mmol/L (98-107); GLUCOSE 115 mg/dL (74-106); POTASSIUM - SERUM 5.7 mmol/L (3.5-5.1); SODIUM 136 mmol/L (136-145); UREA NITROGEN 78 mg/dL (7-18); VANCOMYCIN - RANDOM 11.1 ug/mL (10.0-20.0)
[2020-04-30 06:50] LABS: BASOPHILS 0.1 % (0-2); EOSINOPHILS 1.2 % (0-7); HEMOGLOBIN 8.8 g/dL (12-16); IMMATURE GRANULOCYTES 0.3 % (0-5); LYMPHOCYTES 2.5 % (15-50); MCH 27.4 pg (26.0-34.0); MCHC 31.4 g/dL (31.0-37.0); MCV 87.2 fL (80.0-100.0); MEAN PLATELET VOLUME 8.9 fL (7.4-10.4); MONOCYTES 0.9 % (2-11); RBC 3.21 10x6/uL (4.00-5.40); RDW 22.9 % (11.5-14.5)
[2020-04-30 06:51] LABS: CREATININE - SERUM 4.8 mg/dL (0.6-1.3); eGFR NON AFRICAN AMERICAN 10 mL/min (90-120)
[2020-04-30 06:52] LABS: DIGOXIN < 0.06 ng/mL (0.90-2.00)
--- NOTE | 2020-04-30 07:00 | NUR ---
REPORT RECEIVED. ASSESSMENT COMPLETE PER FLOW SHEET. VSS. PT RESTING COMFORTABLY WILL CONTINUE TO MONITOR
[2020-04-30 07:03] LABS: PLATELET COUNT 252 10x3/uL (130-400); WBC 13.8 10x3/uL (4.8-10.8)
--- NOTE | 2020-04-30 11:00 | NUR ---
REASSESSMENT COMPLETE PER FLOW SHEET. VSS. NO NEW CHANGES WILL CONTINUE TO MONITOR
--- NOTE | 2020-04-30 12:20 | NUR ---
JANAK BENITEZ AT BEDSIDE GIVEN UPDATE. PT IN A FLUTTER RATE 160 NEW ORDERS RECEIVED. ADM.
--- NOTE | 2020-04-30 12:58 | NUR ---
PT HR 130 WILL REASSESS. ATE 15% LUNCH
--- NOTE | 2020-04-30 15:17 | NUR ---
REASSESSMENT COMPLETE PER FLOW SHEET. VSS. PT RESTING COMFORTABLY WILL CONTINUE TO MONITOR
--- NOTE | 2020-04-30 16:42 | NUR ---
PT HAS WEEPING EDEMA ON BLE. SKIN IS MACERATED AND IN SPOTS HAS A COBBLESTONE APPEARANCE. THERE IS AN ODOR. LEGS ARE VERY TENDER TO THE TOUCH. RECOMMENDED CLEANSING WITH HIBICLENS DAILY AND KEEPING DRY. WOUND CARE WILL MONITOR.
--- NOTE | 2020-04-30 17:20 | NUR ---
DIALYSIS AT BEDSIDE. GIVEN UPDATE.
--- NOTE | 2020-04-30 19:00 | NUR ---
REPORT RECEIVED, PT RESTING IN BED AT THIS TIME. ASSESSMENT COMPLETED, SEE FLOWSHEET. PT RECEIVING DIALYSIS AT THIS TIME. RT IJ TRIALYSIS PORT INFUSING, SEE IV FLOWSHEET. WILL CONTINUE TO MONITOR.
--- NOTE | 2020-04-30 21:00 | NUR ---
PT RESTING IN BED. PT RECEIVING DIALYSIS AT THIS TIME.
--- NOTE | 2020-04-30 21:39 | MORECARE ---
CASE MANAGEMENT DISCHARGE SUMMARY PATIENT: RADHA MARIE UNIT: [id number] ADM DATE: 04/28/20 AGE: 49 : 72 SEX: F ROOM/BED: D.2302 AUTHOR: MONSTER CABALLERO PHYSICIAN: REFERRING PHYSICIAN: ELIER DANIELSON MD DATE OF SERVICE: 04/30/20 Discharge Plan Patient [facility]IE [facility] [facility] 1970 Planned Disposition: Anticipated Discharge Date: Discharge Date: Expected LOS: Initial Reviewer: [email or web address] Initial Review Date: 04/28/2020 Generated: 04/30/20 10:38 pm Patient Name: RADHA MARIE Page [phone] at 2139 All edits/amendments must be made on the electronic document DICTATION DATE: 04/30/202137 EDUCATION TECHNICIAN: DEDE 04/30/202137 RPT#: [id number] DC DATE: STATUS: ADM IN [facility] [address] [place] [address] END OF REPORT
--- NOTE | 2020-04-30 21:45 | MORECARE ---
CASE MANAGEMENT DISCHARGE SUMMARY PATIENT: RADHA MARIE UNIT: [id number] ADM DATE: 04/28/20 AGE: 49 : 72 SEX: F ROOM/BED: D.2302 AUTHOR: MONSTER CABALLERO PHYSICIAN: REFERRING PHYSICIAN: ELIER DANIELSON MD DATE OF SERVICE: 04/30/20 Discharge Plan Patient Name: RADHA MARIE [facility] [facility] 1970 Planned Disposition: Anticipated Discharge Date: Discharge Date: Expected LOS: Initial Reviewer: [email or web address] Initial Review Date: 04/28/2020 Generated: 04/30/20 10:45 pm DCPIA - Discharge Planning Initial Assessment Updated by [email or web address]: Pallavi Shah on 04/30/20 9:39 pm * Is the patient Alert and Oriented? Yes * How many steps to enter\exit or inside your home? * PCP Navaro * Pharmacy [facility] * Preadmission Environment Home with Family * ADLs Independent * Other Equipment cane, nebulizer, home 02 - [facility] * List name and contact numbers for known caregivers / representatives who currently or will assist patient after discharge: Renetta Houston - mother- [phone] Joycelyn Marie - daughter - [phone] * Verbal permission to speak to the caregivers and representatives has been obtained from the patient. Yes * Community resources currently utilized None * Additional services required to return to the preadmission environment? No * Can the patient safely return to the preadmission environment? Yes * Has this patient been hospitalized within the prior 30 days at any hospital? No Last DP export: 04/30/20 8:39 pm Patient Name: RADHA MARIE Page [phone] at 2144 All edits/amendments must be made on the electronic document DICTATION DATE: 04/30/202144 BROILER MANAGER: DEDE 04/30/202144 RPT#: [id number] DC DATE: STATUS: ADM IN [facility] [address] [place] [address] END OF REPORT
--- NOTE | 2020-04-30 21:52 | MORECARE ---
CASE MANAGEMENT DISCHARGE SUMMARY PATIENT: RADHA MARIE UNIT: [id number] ADM DATE: 04/28/20 AGE: 49 : 72 SEX: F ROOM/BED: D.2302 AUTHOR: FEDERICO,DOC PHYSICIAN: REFERRING PHYSICIAN: ELIER DANIELSON MD DATE OF SERVICE: 04/30/20 Discharge Plan Patient Name: RADHA MARIE Facility: [facility]:[place] : 1970 Planned Disposition: Anticipated Discharge Date: Discharge Date: Expected LOS: Initial Reviewer: [email or web address] Initial Review Date: 04/28/2020 Generated: 04/30/20 10:51 pm Comments DCP- Discharge Planning Updated by [email or web address]: Pallavi Shah on 04/30/20 8:[address] Patient Name: RADHA MARIE Admission Status: ER Accout number: [id number] Admission Date: 04-28-2020 : 1970 Admission Diagnosis:SEPSIS, UNSPECIFIED ORGANISM Attending: ELIER DANIELSON Current LOS: 2 Anticipated DC Date: Planned Disposition: Primary Insurance: MEDICARE A & B Discharge Planning Comments: CM met with patient to complete initial dc planning assessment. CM educated patient on the CM role and verbal consent given by patient to complete assessment. Patient lives at home with family. Patient was fidgeting during assessment and CM wound have to redirect patient often. Patient is independent. At discharge patient plans to return home and feels this is a safe discharge. CM discussed availability of home health, rehab services, and medical equipment. Patient will have family to transport home. Patient has multiple wounds hopefully she will agree to home health services closer to discharge or rehab. Patient denied known discharge needs at this time. CM will continue to follow and will assist as needed with dc plans/needs. Teletypesetter Monitor: Pallavi Shah DCPIA - Discharge Planning Initial Assessment Updated by [email or web address]: Pallavi Shah on 04/30/20 9:39 pm * Is the patient Alert and Oriented? Yes * How many steps to enter\exit or inside your home? * PCP Navaro * Pharmacy [facility] * Preadmission Environment Home with Family * ADLs Independent * Other Equipment cane, nebulizer, home 02 - [facility] * List name and contact numbers for known caregivers / representatives who currently or will assist patient after discharge: Renetta Houston - mother- [phone] Joycelyn Marie - daughter - [phone] * Verbal permission to speak to the caregivers and representatives has been obtained from the patient. Yes * Community resources currently utilized None * Additional services required to return to the preadmission environment? No * Can the patient safely return to the preadmission environment? Yes * Has this patient been hospitalized within the prior 30 days at any hospital? No Last DP export: 04/30/20 8:45 pm Patient Name: RADHA MARIE Page [phone] at 2152 All edits/amendments must be made on the electronic document DICTATION DATE: 04/30/202150 CAR DRIVER: DEDE 04/30/202150 RPT#: [id number] DC DATE: STATUS: ADM IN [facility] [address] [place] [address] END OF REPORT
[2020-04-30 22:15] LABS: ANION GAP 17.7 mmol/L (8-16); CALCIUM 7.6 mg/dL (8.5-10.1); CARBON DIOXIDE 24.8 mmol/L (21.0-32.0)
[2020-04-30 22:17] LABS: CREATININE - SERUM 2.9 mg/dL (0.6-1.3); POTASSIUM - SERUM 4.5 mmol/L (3.5-5.1)
--- NOTE | 2020-04-30 23:00 | NUR ---
REASSESSMENT COMPLETED, SEE FLOWSHEET. REFUSES BIPAP AT THIS TIME, STATES SHE "CAN'T TOLERATE IT."
[2020-05-01] VITALS (95 sets, daily range): BP systolic 76–143; BP diastolic 49–99
--- NOTE | 2020-05-01 01:00 | NUR ---
PT RESTING IN BED, CONTINUES TO HAVE SLIGHT TWITCHING MOVEMENTS SPORADICALLY. WILL CONTINUE TO MONITOR.
--- NOTE | 2020-05-01 03:00 | NUR ---
REASSESSMENT COMPLETED, SEE FLOWSHEET. CONTINUES TO REFUSE BIPAP.
[2020-05-01 03:42] LABS: BASOPHILS 0 % (0-2); EOSINOPHILS 0 % (0-7); HEMOGLOBIN 8.6 g/dL (12-16); IMMATURE GRANULOCYTES 0.4 % (0-5); LYMPHOCYTES 4.1 % (15-50); MCH 27.3 pg (26.0-34.0); MCHC 31.9 g/dL (31.0-37.0); MCV 85.7 fL (80.0-100.0); MEAN PLATELET VOLUME 8.6 fL (7.4-10.4); MONOCYTES 3.5 % (2-11); PLATELET COUNT 293 10x3/uL (130-400); RBC 3.15 10x6/uL (4.00-5.40); RDW 22.3 % (11.5-14.5); WBC 11.1 10x3/uL (4.8-10.8)
[2020-05-01 04:01] LABS: ANION GAP 15.5 mmol/L (8-16); CALCIUM 7.8 mg/dL (8.5-10.1); CARBON DIOXIDE 26.2 mmol/L (21.0-32.0); PHOSPHOROUS 5.1 mg/dL (2.5-4.9); POTASSIUM - SERUM 4.7 mmol/L (3.5-5.1); VANCOMYCIN - RANDOM 8.8 ug/mL (10.0-20.0)
--- NOTE | 2020-05-01 04:58 | NUR ---
PT RESTING QUIETLY IN BED. NO ACUTE DISTRESS NOTED AT THIS TIME.
--- NOTE | 2020-05-01 07:00 | NUR ---
REPORT RECEIVED. ASSESSMENT COMPLETE PER FLOW SHEET. VSS. PT RESTING COMFORTABLY WILL CONTINUE TO MONITOR
--- NOTE | 2020-05-01 09:15 | NUR ---
DR CARR AT BEDSIDE GIVEN UPDATE. NEW ORDERS RECEIEVED.
--- NOTE | 2020-05-01 11:00 | NUR ---
REASSESSMENT COMPLETE PER FLOW SHEET. VSS. PT RESTING COMFORTABLY WILL CONTINUE TO MONITOR
--- NOTE | 2020-05-01 11:00 | NUR ---
Nutrition follow-up: Pt receiving a regular diet with poor po intake at this time Pt refusing to wear BIPAP Dialysis 04/30 Wt: 294# Will continue to provide food choices with selective menus and honor food preferences. Will offer nutritional supplements. RDN following.
--- NOTE | 2020-05-01 15:03 | NUR ---
REASSESSMENT COMPLETE PER FLOW SHEET. VSS. PT RESTING COMFOTABLY WILL CONTINUE TO MONITOR
--- NOTE | 2020-05-01 19:00 | NUR ---
REPORT RECEIVED. PT SITTING UP IN BED, AAOX4. ASSESSMENT COMPLETED, SEE FLOWSHEET. RT IJ TRIALYSIS INFUSING, SEE IV FLOWSHEET. WILL CONTINUE TO MONITOR.
--- NOTE | 2020-05-01 21:00 | NUR ---
PT RESTING IN BED, NO ACUTE DISTRESS NOTED. WILL CONTINUE TO MONITOR.
--- NOTE | 2020-05-01 23:00 | NUR ---
REASSESSMENT COMPLETED, SEE FLOWSHEET. WILL CONTINUE TO MONITOR.
[2020-05-02] VITALS (42 sets, daily range): BP systolic 82–123; BP diastolic 59–88
--- NOTE | 2020-05-02 01:00 | NUR ---
PT RESTING IN BED, NO ACUTE DISTRESS NOTED. WILL CONTINUE TO MONITOR.
--- NOTE | 2020-05-02 03:00 | NUR ---
REASSESSMENT COMPLETED, SEE FLOWSHEET. NO ACUTE DISTRESS AT THIS TIME.
--- NOTE | 2020-05-02 05:00 | NUR ---
PT SITTING UP IN BED, NO ACUTE DISTRESS NOTED. WILL CONTINUE TO MONITOR.
[2020-05-02 05:52] LABS: BASOPHILS 0 % (0-2); EOSINOPHILS 0 % (0-7); HEMATOCRIT 26.6 % (36.0-48.0); HEMOGLOBIN 8.3 g/dL (12-16); IMMATURE GRANULOCYTES 0.8 % (0-5); LYMPHOCYTES 7.2 % (15-50); MCH 26.6 pg (26.0-34.0); MCHC 31.2 g/dL (31.0-37.0); MCV 85.3 fL (80.0-100.0); MEAN PLATELET VOLUME 8.7 fL (7.4-10.4); MONOCYTES 6.1 % (2-11); NEUTROPHILS 85.9 % (40-80); RBC 3.12 10x6/uL (4.00-5.40); RDW 21.8 % (11.5-14.5)
[2020-05-02 06:02] LABS: PLATELET COUNT 218 10x3/uL (130-400); WBC 7.4 10x3/uL (4.8-10.8)
[2020-05-02 06:26] LABS: ANION GAP 14.5 mmol/L (8-16); CALCIUM 8.5 mg/dL (8.5-10.1); CARBON DIOXIDE 26.1 mmol/L (21.0-32.0); CREATININE - SERUM 2.8 mg/dL (0.6-1.3); PHOSPHOROUS 5.5 mg/dL (2.5-4.9); POTASSIUM - SERUM 4.6 mmol/L (3.5-5.1); VANCOMYCIN - RANDOM 17.7 ug/mL (10.0-20.0)
[2020-05-02 10:12] LABS: IMMUNOGLOBULIN E 317 IU/mL (6-495)
--- NOTE | 2020-05-02 17:59 | NUR ---
0700 BEDSIDE REPORT RECEIVED FROM SHAW LIRAUCED MYSELF ASSESSMENT COMPLETE
--- NOTE | 2020-05-02 18:00 | NUR ---
0900 OFFERED CHG BATH PATIENT REFUSED
--- NOTE | 2020-05-02 18:01 | NUR ---
1100 ASSISTED PT ON BED STEARNS WITH ONLY 30ML OF CLEAR MUCUS WITH FEW BROWN SPECKS NOTED
--- NOTE | 2020-05-02 18:02 | NUR ---
1300 ENCOURAGED IS USE EXPLAINED ITS PURPOSE VERBALIZED UNDERSTANDING AND DEMONSTRATED USE
--- NOTE | 2020-05-02 18:04 | NUR ---
1500 DAUGHTER VISITING WITH PATIENT ASSISTED TO BED STEARNS NO STOOL NOTED
--- NOTE | 2020-05-02 18:05 | NUR ---
1700 APPETITE FAIR VOICES NO COMPLAINTS
--- NOTE | 2020-05-02 19:00 | NUR ---
REPORT GIVEN BY ICU NURSE.
--- NOTE | 2020-05-02 19:30 | NUR ---
PT ASSESSMENT COMPLETED. PT IS VERY OBESE. SHE WILL ATTEMPT TO TURN BUT IT TAKES TWO TO MOVE HER. SHE JUST HAD A SOFT FORMED BROWN STOOL. HER DAY NURSE TOLD HER JUST TO GO IN THE BED INSTEAD OF ASKING FOR A BEDPAN B/C SHE STATES THAT "ITS JUST MUCUS". I TOLD THE PT TO ASK FOR THE BEDPAN IF SHE NEEDS TO GO AGAIN TO PREVENT ANY CHANCE OF SKIN BREAKDOWN. AT THIS TIME SHE HAS NO BREAKSOWN ON HER BOTTOM OBSERVED FROM CHANGING AND CLEANING HER UP. SHE IS ON HIGH FLOW OXIMISER PER NASAL CANNULA BUT PT IS A MOUTH BREATHER USING ASSESSORY MUSCLES TO BREATHE. SHE HAS A MARTINEZ CATHETER THAT IS DRAINING VERY DARK URINE. PT HAS A RIGHT IJ TRIALYSIS CATHETER. PT ALSO HAS A PIV IN THE RIGHT FOREARM THAT IS SALINE LOCKED. PT HAS CELLULITIS OF BILATERAL LOWER EXTREMITIES. AT THIS TIME ALL SITES ARE DRY AND INTACT. PT USES HER IS WELL. SHE CAN GET UP TO 1000 AT TIMES. PT HAS HER BIPAP BUT REFUSES TO USE IT. SHE STATES SHE CANNOT BREATHE WITH IT ON. PT IS ON A RENAL DIET. PT WAS IN CONTROLLED A FIB TODAY. SHE IS WATCHING TV AT THIS TIME BUT FALLS ASLEEP EASILY. HER CALL LIGHT IS WITHIN REACH FOR HER.
--- NOTE | 2020-05-02 20:30 | NUR ---
PT IS RESTING QUIETLY. NO C/O OR NEEDS.
--- NOTE | 2020-05-02 21:15 | NUR ---
IN PT ROOM TO GIVE MEDS. HER TRIALYSIS PURPLE PORT WAS FLUSHED WITH SALINE BEFORE GIVING IV LASIX. IT FLUSHED WELL. BLOOD SUGAR WAS OBTAINED WITH VALUE OF 222. PER HER SLIDING SCALE SHE RECEIVED 4 UNITS OF HUMALOG INSULIN. BEFORE I LEFT THE ROOM PT ASKED FOR A REAL SPRITE WITH ICE. I TOLD HER I'D BRING HER A DIET SPRITE WITH ICE. BEFORE I COULD SAY ANYTHING SHE TOLD ME SHE COULD HAVE A REAL ONE. I THEN LET HER KNOW I WAS OUT OF REAL ONES. THIS WAS DELIVERED TO HER BEDSIDE.
--- NOTE | 2020-05-02 22:30 | NUR ---
PT IS RESTING QUIETLY WITH HER EYES CLOSED. SHE IS BREATHING WITH HER MOUTH OPEN. NO C/O OR NEEDS AT THIS TIME.
--- NOTE | 2020-05-03 | NUR ---
PT STILL RESTING QUIETLY. SHE HAS NO C/O.
--- NOTE | 2020-05-03 01:39 | NUR ---
WENT TO PT ROOM FOR ROUNDS. PT CONT. TO SLEEP SOUNDLY. HER O2 IS ON 5L HIGH FLOW BUT PT CONT. TO BREATHE THROUGH HER MOUTH. HER SKIN IS MOTTLED BUT THIS IS NOT NEW. MARTINEZ CONT TO DRAIN DARK URINE.
[2020-05-03 03:00] VITALS: BP 116/80
--- NOTE | 2020-05-03 03:00 | NUR ---
PT IS SLEEPING AT THIS TIME. SHE IS STILL MOUTH BREATHING. HER DIRTY DISHES WERE TAKEN FROM ROOM WITHOUT HER WAKING.
--- NOTE | 2020-05-03 04:00 | NUR ---
MARTINEZ EMPTIED. 1000 ML OUTPUT. APPROX. 1000CC FLUID TAKEN IN. PT IS STILL SLEEPING.
--- NOTE | 2020-05-03 05:03 | NUR ---
SIGNING OFF TO SIT FOR ANOTHER PT. CHARGE NURSE BLANCHE IS TAKING OVER THE CARE OF THIS PT.
[2020-05-03 05:47] LABS: BASOPHILS 0 % (0-2); EOSINOPHILS 0 % (0-7); HEMATOCRIT 25.5 % (36.0-48.0); IMMATURE GRANULOCYTES 0.7 % (0-5); LYMPHOCYTES 8.9 % (15-50); MCH 27.1 pg (26.0-34.0); MCHC 31.4 g/dL (31.0-37.0); MCV 86.4 fL (80.0-100.0); MEAN PLATELET VOLUME 9.2 fL (7.4-10.4); MONOCYTES 3.8 % (2-11); NEUTROPHILS 86.6 % (40-80); RBC 2.95 10x6/uL (4.00-5.40); RDW 21.9 % (11.5-14.5)
[2020-05-03 05:52] LABS: PLATELET COUNT 166 10x3/uL (130-400); WBC 4.5 10x3/uL (4.8-10.8)
[2020-05-03 06:00] VITALS: BP 104/78
--- NOTE | 2020-05-03 06:00 | NUR ---
PT CONTINUES TO SLEEP SOUNDLY. SIDE RAILS UP.
[2020-05-03 06:09] LABS: ANION GAP 13.6 mmol/L (8-16); CARBON DIOXIDE 27.9 mmol/L (21.0-32.0); CREATININE - SERUM 2.9 mg/dL (0.6-1.3); PHOSPHOROUS 5.9 mg/dL (2.5-4.9); POTASSIUM - SERUM 4.5 mmol/L (3.5-5.1); VANCOMYCIN - RANDOM 24.8 ug/mL (10.0-20.0)
[2020-05-03 07:00] VITALS: BP 97/69
--- NOTE | 2020-05-03 10:39 | NUR ---
Nutrition follow-up: Pt receiving a renal diet with po intake fair at this time. Pt continues to refuse BIPAP per nursing HD on hold at this time +BM Wt: 300# Will continue to provide food choices and honor food preferences within diet restrictions. RDN following.
--- NOTE | 2020-05-03 11:00 | NUR ---
BEDSIDE REPORT RECEIVED.TALKING ON CELLPHONE.DENIES NEEDS.SIDERAILS UP BED IN LOW POSITION,CL IN EASY REACH.
--- NOTE | 2020-05-03 12:05 | NUR ---
0700 BEDSIDE REPORT RECEIVED VITAL SIGNS TAKEN ASSESSMENT COMPLETE
--- NOTE | 2020-05-03 14:40 | NUR ---
REPORT CALLED TO KOJO MERLOS RECEIVING NURSE FOR ROOM 2209 MED SURG UNIT.
--- NOTE | 2020-05-03 15:00 | NUR ---
TRANSFERED VIA BED TO ROOM 2209.
--- NOTE | 2020-05-03 15:00 | NUR ---
ALL PERSONAL ITEMS SENT WITH HER.
--- NOTE | 2020-05-03 17:55 | NUR ---
I have reviewed this patient and I concur with the Shift Assessment completed by the Licensed Practical Nurse today this shift.
--- NOTE | 2020-05-04 07:00 | NUR ---
RECEIVED REPORT. ASSUMED CARE OF PATIENT. BEDSIDE SHIFT REPORT COMPLETED. WHITE BOARD UPDATED. PATIENT RESTING WITH EYES CLOSED. RESP EVEN. PATIENT NOTED TO BE A MOUTH BREATHER, REFUSED BIPAP LAST PM. CALL LIGHT WITHIN REACH. NO ACUTE DISTRESS NOTED. NO TELEMETRY AVAILABLE AT THIS TIME.
[2020-05-04 07:46] LABS: ANION GAP 16.4 mmol/L (8-16); CALCIUM 7.9 mg/dL (8.5-10.1); CREATININE - SERUM 3.3 mg/dL (0.6-1.3); PHOSPHOROUS 6.7 mg/dL (2.5-4.9); POTASSIUM - SERUM 4.4 mmol/L (3.5-5.1); VANCOMYCIN - RANDOM 21.9 ug/mL (10.0-20.0)
[2020-05-04 08:01] LABS: HEMATOCRIT 28.5 % (36.0-48.0); HEMOGLOBIN 8.8 g/dL (12-16); LYMPHOCYTES 9.7 % (15-50); MCH 28.2 pg (26.0-34.0); MCHC 30.9 g/dL (31.0-37.0); MEAN PLATELET VOLUME 9.7 fL (7.4-10.4); NEUTROPHILS 85.1 % (40-80); RBC 3.12 10x6/uL (4.00-5.40); RDW 23.6 % (11.5-14.5)
[2020-05-04 08:05] LABS: MCV 91.3 fL (80.0-100.0); PLATELET COUNT 216 10x3/uL (130-400); WBC 8.4 10x3/uL (4.8-10.8)
[2020-05-04 09:16] VITALS: BP 105/81
--- NOTE | 2020-05-04 09:22 | NUR ---
MEDICATED FOR ANXIETY AT THIS TIME. NO DISTRESS. CREDIT REPORTER ROUNDING AT THIS TIME FOR DR. CARR.
[2020-05-04 17:35] LABS: BILIRUBIN NEGATIVE (NEGATIVE); GLUCOSE NEGATIVE (NEGATIVE); KETONE NEGATIVE (NEGATIVE); NITRITE NEGATIVE (NEGATIVE); UROBILINOGEN NORMAL (NORMAL)
[2020-05-04 17:39] LABS: BACTERIA MODERATE /hpf (NEGATIVE); RED CELLS - URINE >50 /hpf (0-5)
[2020-05-04 17:40] LABS: YEAST >1+ /hpf (NONE SEEN)
--- NOTE | 2020-05-04 19:30 | NUR ---
PT IN BED, EYES CLOSED, RESP EVEN AND UNLABORED. NO DISTRESS NOTED, CL IN REACH, SR UP X 2.
[2020-05-04 20:28] VITALS: BP 88/52
[2020-05-05] VITALS (45 sets, daily range): BP systolic 64–111; BP diastolic 26–82
--- NOTE | 2020-05-05 01:10 | NUR ---
RAPID RESPONSE CALLED DUE TO LOC, PT PLACED ON BIPPAP DUE TO ADNORMAL ABG'S, PT LETHARGIC AND HARD TO ARROUSE, ORDERS RECIEVED TO TRANSFER PT TO 2302 IN ICU. REPORT GIVEN TO TRACI MANZANARES AT THIS TIME.
--- NOTE | 2020-05-05 01:28 | NUR ---
PT ARRIVED VIA BED WITH RT,RNX2 FROM RAPID RESPONSE ON MED2 FOR RESPIRATORY DISTRESS . SHE IS VERY LETHARGIC AND WILL BARELY OPEN EYES WHEN CALLED NAME. SHE WILL NOT SPEAK AT THIS TIME. SHE IS VERY WEAK. HER VSS. SHE IS ON BIPAP MACHINE AT 60% WITH OXYGEN SATURATION AT 98%, BP IS 90/53, HR 67 BBB WHICH IS NOT NEW. HER BLOOD SUGAR WAS 174 DURING RAPID RESPONSE. MARTINEZ CATHETOR OBSERVED TO GRAVITY AND DRAINING, RIGHT IJ TRYIALYSIS IS CDI SL. FULL ASSESSMENT WILL BE DOC IN FLOWSHEET. JACI WAS NOTIFIED AND ORDERED PT TO BE TRANSFERED TO ICU. BED IS LOW,SIDE RAISLX2, TRIED TO ORIENT TO CALL LIGHT WITHOUT ACKNOWLEDGMENT. PUT CALL LIGHT IN HAND. BED ALARM IS ON. WILL CONTINUE TO MONITOR
--- NOTE | 2020-05-05 01:42 | NUR ---
PT DAUGHTER AND MOTHER CALLED TO INFORM THAT PT HAD BEEN MOVED TO ICU, MESSAGES LEFT AT THIS TIME.
--- NOTE | 2020-05-05 02:20 | NUR ---
PT IS RESTING IN BED WITH EYES CLOSED. VSS, BIPAP IS ON. PT IS STILL LETHARGIC BUT OPENS EYES WHEN CALLED NAME BUT QUICKLY SHUTS THEM. SHE IS STILL TO WEAK TO MOVE AT THIS TIME. SHE VOICES NO NEEDS OR C/O WHEN ASKED IF SHE IS HURTING. BED IS LOW,SIDE RAISLX2,CALL LIGHT WTIHIN REACH. WILL CONINTUE TO MONITOR. BED ALARM IS ON
--- NOTE | 2020-05-05 03:45 | NUR ---
PT IS STILL RESTING IN BED LETHARGIC. HER VSS. BIPAP IS ON. SHE IS STILL VERY WEAK AND VOICES NO C/O. HER BED IS LOW,SIDE RAISLX2,CALL LIGHT WITHIN REACH. WILL CONITNUE TO MONITOR
--- NOTE | 2020-05-05 04:04 | NUR ---
PT IS MORE AWAKE. UPON GOING INTO ROOM SHE IS ITCHING HER HEAD. I ASK IF ICAN HELP STRAIGHTEN OUT THE BIPAP STRAPS AND SHE VOICES"YEA". SHE VOICES"no" TO PAIN OR OTHER NEEDS. SHE IS A&OX2 HER NAME AND THAT SHE IS IN THE HOSPITAL. I EXPLAIN TO HER THAT SHE WAS BROUGHT TO ICU DUE TO REPIRATORY DISTRESS. SHE VERBALIZED"OK". I ORIENTED HER TO USE HER CALL LIGHT IF NEED ASSISTANCE AND TO NOT GET UP WITHOUT ASSISTANCE. SHE VERBALIZED"OK". BED IS LEFT LOW,SIDE RAISLX2,CALL LIGHT WITHIN REACH. WILL CONINTUE TO MONITOR
[2020-05-05 05:30] LABS: BASOPHILS 0.3 % (0-2); EOSINOPHILS 0.2 % (0-7); HEMATOCRIT 28.7 % (36.0-48.0); HEMOGLOBIN 8.7 g/dL (12-16); IMMATURE GRANULOCYTES 3.4 % (0-5); LYMPHOCYTES 11.4 % (15-50); MCH 27.5 pg (26.0-34.0); MCHC 30.3 g/dL (31.0-37.0); MCV 90.8 fL (80.0-100.0); MEAN PLATELET VOLUME 10.7 fL (7.4-10.4); MONOCYTES 8.1 % (2-11); NEUTROPHILS 76.6 % (40-80); PLATELET COUNT 211 10x3/uL (130-400); RBC 3.16 10x6/uL (4.00-5.40); RDW 22.7 % (11.5-14.5)
[2020-05-05 05:31] LABS: WBC 11.9 10x3/uL (4.8-10.8)
[2020-05-05 05:50] LABS: ANION GAP 14.2 mmol/L (8-16); CALCIUM 7.9 mg/dL (8.5-10.1); CARBON DIOXIDE 26.9 mmol/L (21.0-32.0); CREATININE - SERUM 3.1 mg/dL (0.6-1.3)
[2020-05-05 05:51] LABS: POTASSIUM - SERUM 5.1 mmol/L (3.5-5.1)
--- NOTE | 2020-05-05 06:35 | NUR ---
PT IS RESTING IN BED WITH EYES CLOSED. AWAKES WHEN CALLED NAME BUT QUICKLY DRIFTS BACK TO SLEEP. SHE VOICES"NO" TO PAIN. VSS. SHE IS IN NO DISTRESS AT THIS TIME. BED IS LOW,SIDE RAISLX2,CALL LIGHT WITHIN REACH. BED ALARM IS ON
--- NOTE | 2020-05-05 08:06 | NUR ---
RENAL PERSONAL CARE ASSISTANT AND DR. CARR HERE UPDATE GIVEN. PATIENT ON BIPAP. OPENS EYES, WILL SQUEEZE HANDS WITH ENCOURAGEMENT. STILL LETHARGIC. MONITOR SR. SOME SB NOTED RATE IN 40'S. HEAD OF BED ELEVATED 30 DEGREES. RIJ TRIALYSIS DRESSING DRY AND INTACT SALINE LOCKED. MARTINEZ PATENT. HARD, DISCOLORED SKIN IN ABD, BILATERAL LEGS. DRY SCALY SKIN BELOW KNEES. NO SKIN BREAK DOWN NOTED ON HEELS.
--- NOTE | 2020-05-05 10:00 | NUR ---
DAUGHTER HERE UPDATE GIVEN. PATIENT MORE AWAKE AND ALERT, STILL SOME CONFUSION AND VERY SLEEPY, WILL TAKE BIPAP OFF, TALKED WITH DAUGHTER ABOUT RESTRAINTS IF PATIENT WILL NOT LEAVE BIPAP, AND SHE UNDERSTANDS THE NEED. MASK REMOVED FOR PO MEDS, PATIENT THOUGHT SHE DRINKING FROM A STRAW AND SHE WAS NOT, GOOD COUGH EFFORT, PATIENT WILL DESAT INTO 80'S WHEN NOT ON BIPAP
--- NOTE | 2020-05-05 12:00 | NUR ---
DR. BEATTY HERE. PATIENT AWAKES EASILY PO MEDS GIVEN. PATIENT REMINDED WHY SHE NEEDS BIPAP FOR NOW.
--- NOTE | 2020-05-05 14:00 | NUR ---
RESTING COMFORTABLY NO DISTRESS. ON BIPAP 80%. OXYGEN INCREASED DUE TO PULSE OX IN LOW 80'S AND 70'S. PULSE OX IMPROVED.
--- NOTE | 2020-05-05 16:00 | NUR ---
DR. JOAQUIN HERE. LEVOPHED GTT STARTED TO KEEP SBP 90-100. 12 LEAD EKG DONE, ABG DONE. PATIENT STILL LETHERGIC. WHEN AWAKEN WILL OBEY COMMANDS AND TRIES TO TAKE BIPAP OFF . LEVOPHED STARTED AT 5 MCG/MIN. MARTINEZ CATH WITH SMALL AMOUNT OF DARK TRACI URINE IN BAG. RIJ TRIALYSIS INFUSING WITH LEVOPHED. MONITOR SR WITH SOME MAGALY CARDIA DOWN INTO THE 40'S.
--- NOTE | 2020-05-05 18:00 | NUR ---
LEVOPHED AT 10 MCG/MIN TO KEEP SBP ABOVE 90. BIPAP OXYGEN AT 90%. PATIENT WILL STILL REACH UP AND TAKE BIPAP OFF.
--- NOTE | 2020-05-05 19:30 | NUR ---
PT OPENS EYES TO STIMULI, BIPAP IN USE WITH 02 @ 90%, LUNGS WITH INSPIRATORY AND EXPIRATORY WHEEZES, RIGHT IJ TRIALYSIS CATH WITH LEVOPHED @ 15MCG, MICHELLE PATENT TO BSD, VITALS STABLE
[2020-05-06] VITALS (80 sets, daily range): BP systolic 41–126; BP diastolic 2–94
--- NOTE | 2020-05-06 00:56 | NUR ---
PT SLEEPING WITH NO DISTRESS, BIPAP REMAINS IN USE, NO CHANGE IN STATUS
[2020-05-06 03:47] LABS: HEMOGLOBIN 10.4 g/dL (12-16); MCH 28.1 pg (26.0-34.0); MCHC 30.6 g/dL (31.0-37.0); MCV 91.9 fL (80.0-100.0); RDW 24.7 % (11.5-14.5); WBC 31.6 10x3/uL (4.8-10.8)
[2020-05-06 03:48] LABS: MEAN PLATELET VOLUME 10.5 fL (7.4-10.4); PLATELET COUNT 390 10x3/uL (130-400)
[2020-05-06 04:04] LABS: ALBUMIN 3.6 g/dL (3.4-5.0); ANION GAP 15.3 mmol/L (8-16); BILIRUBIN - TOTAL 1.37 mg/dL (0.2-1.3); CALCIUM 8.4 mg/dL (8.5-10.1); CREATININE - SERUM 3.8 mg/dL (0.6-1.3); MAGNESIUM - SERUM 2.3 mg/dL (1.8-2.4); POTASSIUM - SERUM 5.3 mmol/L (3.5-5.1); PROTEIN - SERUM 7.3 g/dL (6.4-8.2); VANCOMYCIN - RANDOM 24.8 ug/mL (10.0-20.0)
[2020-05-06 04:08] LABS: PHOSPHOROUS 8.7 mg/dL (2.5-4.9)
[2020-05-06 04:15] LABS: EOSINOPHILS 1 % (0-7); LYMPHOCYTES 20 % (15-50); MONOCYTES 6 % (2-11); NEUTROPHILS 71 % (40-80); PLATELET ESTIMATE NORMAL
--- NOTE | 2020-05-06 05:15 | NUR ---
SPOKE WITH DR JOAQUIN, UPDATED ON PT CONDITION AND LABS, ORDERS RECIEVED FOR HYDROCORTISONE IV AND NS BOLUS
--- NOTE | 2020-05-06 08:06 | EC ---
PATIENT:RADHA MARIE DATE OF SERVICE: 04/28/20 SEX: F MEDICAL RECORD: [id number] DATE OF : [birth year] LOCATION:[facility] [place] D230 AGE OF PATIENT: 49 ADMISSION DATE: 04/28/20 REFERRING PHYSICIAN: INTERPRETING PHYSICIAN: MANISH WYNN MD ECHOCARDIOGRAM REPORT ECHO CHARGES 4 ECHO COMPLETE Date: 04/28/20 CLINICAL DIAGNOSIS: ELEVATED D-DIMER AND TROPONIN PE'S, ASSESS FOR EF AND CLOTS ECHOCARDIOGRAPHIC MEASUREMENTS (adult normal given) AC root (d.<3.7cm) 2.7 cm LV Septum d (<1.2 cm> 1.4 cm Valve Excursion 1.6 cm LV Septum (systole) 1.9 cm Left Atria (s.<4.0cm> 3.5 cm LVPW d(<1.2cm) 1.8 cm RV (d.<2.3cm) 6.9 cm LVPW (sytole) 2.0 cm LV diastole(<5.6CM) 5.3 cm MV E-F(>70mm/sec) cm LV systole 3.3 cm LVOT Diameter 1.9 cm MV exc.(>10mm) 1.3 cm Est.ejection fraction (50-75%) % DOPPLER: LVIT cm/sec A 98.0 cm/sec E 73.0 cm/sec LA cm/sec RVSP 94 mmHg LVOT 142 cm/sec AOP1/2T m/s Asc. Ao 243 cm/sec RVOT 84 cm/sec RA cm/sec PA 166 cm/sec AV Gradient Peak 23.52mmHg AV Mean 14.47mmHg AV Area 1.7 cm MV Gradient Peak 7.19 mmHg MV Mean 3.69 mmHg MV Area cm COMMENTS: Invasive Cardiovascular Technologist: 2 [place] ALEJANDRO Executive Officer Special Warfare Team: 3 Dr. Chaudhry TAPE# PACS Pericardial Effusion N DATE OF SERVICE: Adequate 2D, color flow imaging, spectral Doppler, and M-Mode. LVH is present. LV internal dimension is normal. Wall motion is normal. EF is greater than or equal to 55%. Aortic valve is tricuspid. No evidence of stenosis by Doppler interrogation. Left atrium is normal at 3.5 cm. Mitral valve shows no prolapse. Trace MR. RA and RV dimensions are markedly dilated with hypokinesis of the RV. There is severe degree of TR. RV systolic pressures are greater than or equal to 94 mmHg via the continuity equation. ECHOCARDIOGRAM REPORT [id number] MARIEVINCE JONESY TRANSINT:[id number] Voice Confirmation ID: [id number] DOCUMENT ID: [id number] MANISH WYNN MD at 0806 CC: [id number] DICTATION DATE: 04/29/20 0937 SECURITY CHIEF MUSEUM: 04/29/20 1147 ADM IN [place] [id number] [place] [id number]
--- NOTE | 2020-05-06 08:30 | NUR ---
PULLING BIPAP MASK OFF. DESATS TO LOW 80S. MASK REPLACED AND REASON REINFORCED.
--- NOTE | 2020-05-06 10:53 | NUR ---
Nutrition follow-up: Pt refusing BIPAP; continues with SOB Diet: renal ADA with very poor po intake Labs reviewed Wt: 300# Levophed restarted HD today Recommend starting nutrition support of Nepro@ 20 ml/hr with increase to goal rate of 50 ml/hr RDN following.
--- NOTE | 2020-05-06 11:30 | NUR ---
HEMODIALYSIS INITIATED. BP DECREASED TO 80S SYSTOLIC. LEVO TITRATED TO 20MG/MIN.
--- NOTE | 2020-05-06 12:15 | NUR ---
PULLING BIPAP OFF FREQUENTLY. SATS DECREASED TO LOW 80S EACH TIME. PULLING AT LINES AND TUBES. LIMB HOLDERS APPLIED TO MAINTIAN TUBES AND LINES. LEVOPHEN INCREASED DUE TO LOW BP. TITRATED TO 28MCG/MIN. BP INPROVED.
--- NOTE | 2020-05-06 17:00 | NUR ---
DR. MOMIN INFORMED OF CONTINUED LOW BP AND LEVOPHED TITRATED TO 30 MCG. VASOPRESIN ORDERED. LABORING WITH BREATHING. SATS IN LOW 90S.
--- NOTE | 2020-05-06 18:00 | NUR ---
BP 88-90 SYSTOLIC AND MAP OF [address] MOMIN ON UNIT. INQUIRED ABOUT FLUID BOLUS. DR. MOMIN DENIED BOLUS.
--- NOTE | 2020-05-06 19:08 | NUR ---
CALLED DR JOAQUIN, PT B/P CRITICAL, ORDERS RECIEVED FOR NS BOLUS AND GET A-LINE PLACED
--- NOTE | 2020-05-06 19:20 | NUR ---
PAGED DR JACKSON FOR ANESTHESIA TO GET A-LINE
--- NOTE | 2020-05-06 19:25 | NUR ---
SPOKE WITH DR JACKSON, FREDIS SHEN TO PLACE A-LINE, CALLED DAUGHTER, INFORMED OF PT STATUS, SHE WISHES TO CONTINUE WITH CARE AND PT BE ON VENT IF NEEDED
--- NOTE | 2020-05-06 19:40 | NUR ---
PAGED DR MOMIN, DR JOAQUIN WANTS PT INTUBATED
--- NOTE | 2020-05-06 19:50 | NUR ---
REPAGED DR MOMIN
--- NOTE | 2020-05-06 20:00 | NUR ---
ANESTHESIA @ BEDSIDE, GIVEN VERSED 2MG IVP AND 2 ML ROCURONIUM IVP, PT INTUBATED BY ANESTHESIA, PLACED ON VENT, A-LINE PLACED IN RIGHT RADIAL WRIST BY ANESTHESIA
--- NOTE | 2020-05-06 21:00 | NUR ---
SPOKE WITH DR JOAQUIN, INFORMED PT INTUBATED AND A-LINE PLACED, A-LINE B/P BETTER, WEANING NEOSYNEPHRINE GTT, PT SEDATED WITH PROPOFOL, NO DISTRESS
[2020-05-07] VITALS (51 sets, daily range): BP systolic 49–99; BP diastolic 26–65
[2020-05-07 05:03] LABS: HEMATOCRIT 35.1 % (36.0-48.0); HEMOGLOBIN 10.7 g/dL (12-16); LYMPHOCYTES 8.5 % (15-50); MCH 28.4 pg (26.0-34.0); MCHC 30.5 g/dL (31.0-37.0); MCV 93.1 fL (80.0-100.0); MEAN PLATELET VOLUME 10.9 fL (7.4-10.4); NEUTROPHILS 87.1 % (40-80); PLATELET COUNT 375 10x3/uL (130-400); RBC 3.77 10x6/uL (4.00-5.40); RDW 24.8 % (11.5-14.5); WBC 45.1 10x3/uL (4.8-10.8)
--- NOTE | 2020-05-07 05:15 | NUR ---
DR JOAQUIN PRESENT IN ROOM, PT SEDATED, ETT IN PLACE, ORDERS RECIEVED, DISCUSSED POC, STATES SHE WILL CALL THE DAUGHTER THIS AM, WILL CONT TO MONITOR
[2020-05-07 05:32] LABS: ALBUMIN 3.3 g/dL (3.4-5.0); BILIRUBIN - TOTAL 2.85 mg/dL (0.2-1.3); CALCIUM 8.6 mg/dL (8.5-10.1); CREATININE - SERUM 4.3 mg/dL (0.6-1.3); MAGNESIUM - SERUM 2.3 mg/dL (1.8-2.4); PROTEIN - SERUM 6.9 g/dL (6.4-8.2)
[2020-05-07 05:51] LABS: PHOSPHOROUS 10.5 mg/dL (2.5-4.9)
--- NOTE | 2020-05-07 07:00 | NUR ---
ASSESSMENT COMPLETED. SEE FLOW SHEET. ELEVATED RR. BP LOW, MAXXED OUT ON LEVOPHED, VASOPRESSIN AND TITRATING NEOSYNEPHRINE. SR ON THE MONITOR.
--- NOTE | 2020-05-07 07:30 | NUR ---
DR MOMIN AT BEDSIDE. NEW ORDERED RECIEVED.
--- NOTE | 2020-05-07 09:00 | NUR ---
DR GUERRIER NOTIFIED OF PT STATUS. NEW ORDERS RECIEVED. STARTED EPI GTT. CALLED DAUGHTER, SHE IS ON HER WAY.
--- NOTE | 2020-05-07 09:30 | NUR ---
DAUGHTER AT BEDSIDE. UPDATE GIVEN. WAITING ON MOTHER AND SISTER. WILL CONT TO MONITOR.
--- NOTE | 2020-05-07 12:00 | NUR ---
PT RESTRAINTS REMOVED, FAMILY AT BEDSIDE,
--- NOTE | 2020-05-07 12:43 | NUR ---
FAMILY AT BEDSIDE, DECISION TO TERMINAL EXTUBATE, DR. PAVON NOTIFIED, NEW ORDERS RECIEVED,
--- NOTE | 2020-05-07 13:28 | NUR ---
OT NOTE: WILL ATTEMPT EVAL WHEN PT IS MORE MEDICALLY STABLE. ABEBA BOYD, OTR/L
--- NOTE | 2020-05-07 13:30 | NUR ---
PT TERMINALLY EXTUBATED AT THIS TIME, FAMILY AT BEDSIDE
--- NOTE | 2020-05-07 13:40 | NUR ---
PT ASYSTOLE ON THE MONITOR, FAMILY AT BEDSIDE, DR. PAVON NOTIFIED
--- NOTE | 2020-05-07 15:32 | NUR ---
home here for pt
--- NOTE | 2020-05-07 18:24 | MORECARE ---
CASE MANAGEMENT DISCHARGE SUMMARY PATIENT: RADHA MARIE UNIT: [id number] ADM DATE: 04/28/20 AGE: 49 : 72 SEX: F ROOM/BED: D.2302 AUTHOR: FEDERICO,DOC PHYSICIAN: REFERRING PHYSICIAN: ELIER DANIELSON MD DATE OF SERVICE: 05/07/20 Discharge Plan Patient Name: RADHA MARIE Facility: [facility]:[place] : 1970 Planned Disposition: Anticipated Discharge Date: Discharge Date: 05/07/2020 Expected LOS: Initial Reviewer: [email or web address] Initial Review Date: 04/28/2020 Generated: 05/07/20 7:24 pm DCP- Discharge Planning Updated by [email or web address]: Pallavi Shah on 04/30/20 8:[address] Patient Name: RADHA MARIE Admission Status: ER Accout number: [id number] Admission Date: 04-28-2020 : 1970 Admission Diagnosis:SEPSIS, UNSPECIFIED ORGANISM Attending: ELIER DANIELSON Current LOS: 2 Anticipated DC Date: Planned Disposition: Primary Insurance: MEDICARE A & B Discharge Planning Comments: CM met with patient to complete initial dc planning assessment. CM educated patient on the CM role and verbal consent given by patient to complete assessment. Patient lives at home with family. Patient was fidgeting during assessment and CM wound have to redirect patient often. Patient is independent. At discharge patient plans to return home and feels this is a safe discharge. CM discussed availability of home health, rehab services, and medical equipment. Patient will have family to transport home. Patient has multiple wounds hopefully she will agree to home health services closer to discharge or rehab. Patient denied known discharge needs at this time. CM will continue to follow and will assist as needed with dc plans/needs. Senior Data Analyst: Pallavi Shah DCPIA - Discharge Planning Initial Assessment Updated by [email or web address]: Pallavi Shah on 04/30/20 9:39 pm * Is the patient Alert and Oriented? Yes * How many steps to enter\exit or inside your home? * PCP [facility] * Pharmacy [place] * Preadmission Environment Home with Family * ADLs Independent * Other Equipment cane, nebulizer, home 02 - [facility] * List name and contact numbers for known caregivers / representatives who currently or will assist patient after discharge: Renetta Houston - mother- [phone] Joycelyn Marie - daughter - [phone] * Verbal permission to speak to the caregivers and representatives has been obtained from the patient. Yes * Community resources currently utilized None * Additional services required to return to the preadmission environment? No * Can the patient safely return to the preadmission environment? Yes * Has this patient been hospitalized within the prior 30 days at any hospital? No Last DP export: 04/30/20 8:52 pm Patient Name: RADHA MARIE Page [id number] at [id number] All edits/amendments must be made on the electronic document DICTATION DATE: 05/07/201823 STUDENT LIFE DEAN: DEDE 05/07/201823 RPT#: [id number] DC DATE:05/07/20 STATUS: DIS IN [facility] [address] [place] [address] END OF REPORT
== END 2020-05-07 13:40 | DRG 871 ==
LOC: D.ER 18:20 → D.ICU 20:00 → D.MS 05-03 15:16 → D.M2 05-03 21:35 → D.ICU 05-05 01:28
PROVIDERS: Family Medicine; Internal Medicine; Internal Medicine Nephrology; Internal Medicine Pulmonary Disease; ADMIT Family Medicine; ATTEND Family Medicine
PROC: 05HM33Z Insertion of Infusion Device into Right Internal Jugular Vein, Percutaneous Approach (ICD-10-PCS; principal; 2020-04-29)
PROC: 5A1935Z Respiratory Ventilation, Less than 24 Consecutive Hours (ICD-10-PCS; 2020-05-06)
PROC: 0BH17EZ Insertion of Endotracheal Airway into Trachea, Via Natural or Artificial Opening (ICD-10-PCS; 2020-05-06)
DX: A41.9 Sepsis, unspecified organism (principal); R65.21 Severe sepsis with septic shock; I50.33 Acute on chronic diastolic (congestive) heart failure; I21.A1 Myocardial infarction type 2; J18.9 Pneumonia, unspecified organism; J96.01 Acute respiratory failure with hypoxia; N17.0 Acute kidney failure with tubular necrosis; G92 Toxic encephalopathy; J96.02 Acute respiratory failure with hypercapnia; E87.2 Acidosis; E87.1 Hypo-osmolality and hyponatremia; N39.0 Urinary tract infection, site not specified; L03.116 Cellulitis of left lower limb; L03.115 Cellulitis of right lower limb; J44.1 Chronic obstructive pulmonary disease with (acute) exacerbation; J44.0 Chronic obstructive pulmonary disease with (acute) lower respiratory infection; E87.5 Hyperkalemia; F17.200 Nicotine dependence, unspecified, uncomplicated; I95.9 Hypotension, unspecified; I48.91 Unspecified atrial fibrillation; J44.9 Chronic obstructive pulmonary disease, unspecified; D64.9 Anemia, unspecified; E66.01 Morbid (severe) obesity due to excess calories; E03.9 Hypothyroidism, unspecified; G47.33 Obstructive sleep apnea (adult) (pediatric); R53.81 Other malaise; E11.9 Type 2 diabetes mellitus without complications